=== PATIENT | female | born 1975 | race Caucasian/White ===

== ENCOUNTER → 2018-02-10 | Outpatient (CLI) | payer BC ==
--- NOTE | 2018-02-10 07:56 | US ---
EXAMINATION TYPE: US liver DATE OF EXAM: 02/10/2018 COMPARISON: NONE CLINICAL HISTORY: 42-year-old female R94.5 Elevated Liver Function; on medication: Motrin and Zoloft; gallbladder removed. TECHNIQUE: Multiple sonographic images of the right upper quadrant are obtained. FINDINGS: EXAM MEASUREMENTS: Liver Length: 18.1 cm Gallbladder: surgically absent CBD: 0.5 cm Right Kidney: 10.7 x 6.7 x 3.8 cm Pancreas: wnl Liver: left lobe liver cyst noted inferiorly = 1.0 x 0.9 x 1.2cm; fatty as is hyperechoic to right r enal cortex Gallbladder: surgically absent Evidence for sonographic Cade's sign: no CBD: wnl Right Kidney: wnl IMPRESSION: 1. Mild hepatomegaly (18.1 cm) with at least mild hepatic steatosis. Correlate with LFTs, lipid profi le, and patient risk factors. 2. Incidental benign 1.2 cm cyst left liver lobe. 3. Status post cholecystectomy.
== END | disposition home or self-care (01) ==
LOC: RADUSWWP 07:09
PROVIDERS: ATTEND Family Medicine
DX: K76.0 Fatty (change of) liver, not elsewhere classified (principal); R16.0 Hepatomegaly, not elsewhere classified; K76.89 Other specified diseases of liver; Z90.49 Acquired absence of other specified parts of digestive tract
CPT/HCPCS: 76705

== ENCOUNTER → 2018-03-19 | Outpatient (CLI) | payer BC ==
[2018-03-19 17:20] LABS: ALT 45 U/L (9-52); AST 31 U/L (14-36); Albumin 4.2 g/dL (3.5-5.0); Alkaline Phosphatase 43 U/L (38-126); Anion Gap 8 mmol/L; Blood Urea Nitrogen 23 mg/dL (7-17); Calcium 10.1 mg/dL (8.4-10.2); Carbon Dioxide 25 mmol/L (22-30); Chloride 105 mmol/L (98-107); Glucose 88 mg/dL (74-99); Potassium 4.1 mmol/L (3.5-5.1); Sodium 138 mmol/L (137-145); Total Bilirubin 0.5 mg/dL (0.2-1.3); Total Protein 6.7 g/dL (6.3-8.2)
== END | disposition home or self-care (01) ==
LOC: LABWHC1 16:07
PROVIDERS: ATTEND Internal Medicine Gastroenterology
DX: R94.5 Abnormal results of liver function studies (principal)
CPT/HCPCS: 36415; 80053

== ENCOUNTER → 2019-03-17 | Outpatient (CLI) | payer BC ==
--- NOTE | 2019-03-18 08:33 | XR ---
EXAMINATION TYPE: XR chest 2V DATE OF EXAM: 03/17/2019 COMPARISON: NONE HISTORY: Chest pain TECHNIQUE: Frontal and lateral views of the chest are obtained. FINDINGS: There is no focal air space opacity. No evidence for pneumothorax. No pleural effusion. The cardiac silhouette size is within normal limits. The osseous structures are grossly intact. IMPRESSION: 1. No acute cardiopulmonary process.
--- NOTE | 2019-03-18 08:33 | XR ---
EXAMINATION TYPE: XR sinus DATE OF EXAM: 03/17/2019 CLINICAL HISTORY: pain Four views of the paranasal sinuses are submitted. Paranasal sinuses demonstrate normal aeration and development. No air-fluid levels are seen. Mild mucosal thickening of the maxillary sinuses left gr eater than right. Nasal septum is midline. No evidence for bony destructive process. IMPRESSION: Mild chronic maxillary sinusitis.
== END | disposition home or self-care (01) ==
LOC: RADXRMAIN 16:49
PROVIDERS: ATTEND Family Medicine
DX: J32.0 Chronic maxillary sinusitis (principal); R05 Cough
CPT/HCPCS: 70220; 71046

== ENCOUNTER → 2019-07-02 | Outpatient (CLI) | payer BC ==
--- NOTE | 2019-07-02 21:05 | CT ---
EXAMINATION TYPE: CT sinus wo con DATE OF EXAM: 07/02/2019 COMPARISON: NONE HISTORY: Chronic sinusitis x6 months, issues more w/ RT side facial pain and headaches. CT DLP: 482 mGycm. Automated Exposure Control for Dose Reduction was Utilized. TECHNIQUE: CT scan of the sinuses is performed without contrast, axial images are obtained, coronal r eformatted images are also reviewed. FINDINGS: The paranasal sinuses including the frontal, ethmoid, sphenoid, and maxillary sinuses bila terally are well-aerated without abnormal opacification. The ostiomeatal complex is patent bilateral ly on coronal image 23. Nasal septum slightly deviated to the left of midline. Visualized portion of mastoid air cells show no abnormal opacification. The globes are intact bilate rally. Visualized brain parenchyma is within normal limits. IMPRESSION: The sinuses are clear and the ostiomeatal complex is patent bilaterally.
== END | disposition home or self-care (01) ==
LOC: RADCTMAIN 16:53
PROVIDERS: ATTEND Otolaryngology
DX: J32.9 Chronic sinusitis, unspecified (principal)
CPT/HCPCS: 70486

== ENCOUNTER 2019-10-02 08:53 | Day surgery (SDC) | payer BC ==
[2019-09-30 16:13] VITALS: BMI 33.4
--- NOTE | 2019-10-02 05:35 | HP ---
HISTORY AND PHYSICAL CHIEF COMPLAINT: Chronic laryngitis. HISTORY OF PRESENT ILLNESS: This patient is a 44-year-old female who was recently seen in my office complaining of having chronic hoarseness. The patient quit smoking approximately 12 years ago. At the time that she was seen in the office clinical examination including indirect laryngoscopy and a videostroboscopy revealed evidence of bilateral true vocal cord lesions. Because of the patient's history of previously heavy smoking, it was recommended that she undergo a suspension microlaryngoscopy with biopsy of the lesions of the vocal cords and possible laser of the vocal cords under general anesthesia. It was discussed with the patient that lesions of both vocal cords will be biopsied at this time. If the lesions are small enough then both true vocal cords will be lasered. However, if the lesions are fairly large, then only one vocal cord will be addressed with the laser at this time. PAST MEDICAL HISTORY: Past medical history reveals that the patient has no known allergies. MEDICATIONS: Her current her current medications include: 1. Zoloft. 2. Claritin. 3. Protonix. REVIEW OF SYSTEMS: Review of systems is positive with respect the gastrointestinal system because the patient is known to have GERD. The remainder of review of systems is unremarkable. PREVIOUS SURGERIES: Previous surgeries include a cholecystectomy, a total hysterectomy. The patient is 2 para, 2 and 0 miscarriages. PHYSICAL EXAMINATION: This patient is a pleasant 44-year-old female who is alert and cooperative. HEENT EXAMINATION: Patient is normocephalic. Tympanic membranes are normal. Middle ear spaces are free of any fluid or infection. Extraocular movements are within normal limits. Intranasal examination reveals moderate to severe septal deviation with compensatory hypertrophy of the inferior turbinates. Examination of the oropharynx including indirect laryngoscopy revealed bilateral true vocal cord lesions. The remainder of the head and neck exam is essentially unremarkable. CHEST/CARDIOVASCULAR: Both lung haile are clear to percussion and auscultation. The patient is in regular sinus rhythm. S1, S2 are present without evidence of any murmurs, S3s or S4s. Peripheral pulses are bilaterally symmetrical and within normal limits. ABDOMEN: There is no evidence any masses, megaly, or tenderness. The abdomen is soft. Skin is unremarkable. Musculoskeletal and neurological and the remainder of physical exam is unremarkable. IMPRESSION: Bilateral true vocal cord lesions. PLAN: The patient is scheduled to undergo biopsy of bilateral true vocal cord lesions with possible laser of true vocal cord lesions under general anesthesia in a.. ATTENTION RNS IN THE PRE-SURGICAL AREA: I have not ordered any pre-surgical prophylactic antibiotics for this patient. If the pharmacy department sends any pre- surgical prophylactic antibiotics to the pre-surgical area for this patient, that order should be cancelled and the medication should be returned to the pharmacy department. Please make sure that the patient's account is credited appropriately. I have discussed the risks, benefits and alternative therapies for the above-mentioned procedure and for both sedation/analgesia as well as necessary blood product administration, if indicated, as they pertain to this patient. The patient has indicated his or her understanding and acceptance of the risks and procedures discussed. MMODL / IJN: [id number] /
[~2019-10-02 08:53] MED LIST: DEXAMETHASONE SOD PHOSPHATE 10 MG/ML 1 ML VIAL IV ONE; HYDROmorphone 0.5 MG/0.5 ML SYRINGE IVP PRN; LACTATED RINGERS 1,000 ML IV SCH; LIDOCAINE 1% (10MG/ML) FOR IV START INTRADERMA PRN; MIDAZOLAM 2 MG/2 ML VIAL IV PRN; ONDANSETRON 4 MG/2 ML VIAL IVP ONE; Pre Op ABX Message 1 EACH MISC MISCELLANE ONE; fentaNYL (PF) 50 MCG/ML 2 ML AMP IVP PRN
[2019-10-02 09:16] VITALS: RESP 16
[2019-10-02] MEDS ORDERED: DEXAMETHASONE SOD PHOS (MDV) 100 MG/10 ML VIAL ONE (09:55)
[2019-10-02] MEDS ORDERED: NEOSTIGMINE 1 MG/ML 10 ML VIAL ONE (09:55)
[2019-10-02] MEDS ORDERED: LIDOCAINE 1% INJ 10MG/ML (20 ML MDV) ONE (09:55)
[2019-10-02] MEDS ORDERED: PHENYLEPHRINE-0.9% NACL SYG 1 MG/10 ML SYRINGE ONE (09:55)
[2019-10-02] MEDS ORDERED: KETOROLAC 30 MG/ML 1 ML VIAL ONE (09:55)
[2019-10-02] MEDS ORDERED: fentaNYL (PF) 50 MCG/ML 2 ML AMP ONE (09:55)
[2019-10-02] MEDS ORDERED: PROPOFOL 10 MG/ML 20 ML VIAL IV ONE (09:55)
[2019-10-02] MEDS ORDERED: MIDAZOLAM 2 MG/2 ML VIAL ONE (09:55)
[2019-10-02] MEDS ORDERED: ROCURONIUM BROMIDE 10 MG/ML 5 ML VIAL IV ONE (09:55)
[2019-10-02] MEDS ORDERED: GLYCOPYRROLATE 0.2 MG/ML 2 ML VIAL ONE (09:55)
[2019-10-02] MEDS ORDERED: SUCCINYLCHOLINE CHLORIDE 100 MG/5 ML SYR IV ONE (09:55)
[2019-10-02] MEDS ORDERED: LACTATED RINGERS 1,000 ML IV ONE (10:43)
[2019-10-02 11:38] VITALS: TEMP 97.5
[2019-10-02 12:46] VITALS: BP 122/74; PULSE 73
--- NOTE | 2019-10-05 05:45 | OP ---
OPERATIVE REPORT PREOPERATIVE DIAGNOSIS: Bilateral true vocal cord lesions. POSTOPERATIVE DIAGNOSIS: Bilateral true vocal cord lesions, pathology pending. ANESTHESIA: General. PROCEDURE: Suspension microlaryngoscopy with biopsy of the right and left true vocal cords and CO2 laser of the left true vocal cord. SURGEON: Dr. Mccullough. COMPLICATIONS: None. ESTIMATED BLOOD LOSS: Zero. OPERATIVE PROCEDURE: The patient was placed on operating table in supine position. After uneventful induction and endotracheal intubation, satisfactory general anesthesia was obtained. Next, the patient was draped in usual and customary fashion. Following this, the laryngoscope was introduced into the oropharynx and the entire hypopharynx including the right and left piriform sinuses, base of tongue, vallecula, and epiglottis were inspected and found to be free of any suspicious lesions. Next, the tip of the laryngoscope was placed at the laryngeal introitus. It is to be noted that because of this patient's anatomy, it was quite difficult getting an adequate view of the laryngeal introitus even with a very small laryngoscope. Next the Lewy apparatus was attached to the handle of the laryngoscope and the laryngoscope was suspended on the patient's chest. Next using the Zeiss operating microscope, inspection revealed that the patient had a large polypoid-like lesion on the left true vocal cord and a similar lesion on the right true vocal cord. It was decided to biopsy both lesions and therefore using a pair of microlaryngeal up-biting forceps, biopsies were initially taken of the left and right true vocal cord with the specimens being sent to pathology in formalin. Next, using the CO2 laser wand, the lesion on the left true vocal cord was vaporized in the usual fashion. The patient was given 10 mg of Decadron to reduce any postoperative laryngeal edema. At this point, the procedure was terminated. There were no intraoperative complications. The patient was returned to recovery room in satisfactory condition. Final pathology is pending. MMODL / IJN: [id number] /
== END 2019-10-02 13:53 | disposition home or self-care (01) ==
LOC: OR 08:53
PROVIDERS: ATTEND Otolaryngology
DX: J04.0 Acute laryngitis (principal); J37.0 Chronic laryngitis; J45.909 Unspecified asthma, uncomplicated; K21.9 Gastro-esophageal reflux disease without esophagitis; Z88.5 Allergy status to narcotic agent; Z90.49 Acquired absence of other specified parts of digestive tract; Z87.891 Personal history of nicotine dependence; Z79.1 Long term (current) use of non-steroidal anti-inflammatories (NSAID); Z79.899 Other long term (current) drug therapy; Z90.710 Acquired absence of both cervix and uterus
CPT/HCPCS: 88305; 88312; 31541; J2250; J1100 ×2; J2710; J2405; J2001; J3010; J1885; J2370; J0330; J2704

== ENCOUNTER 2020-07-15 08:44 | Day surgery (SDC) | payer BC ==
[2020-07-12 16:13] VITALS: BMI 33.4
--- NOTE | 2020-07-15 00:28 | HP ---
HISTORY AND PHYSICAL CHIEF COMPLAINT: Polypoid lesion of the right true vocal cord. HISTORY OF PRESENT ILLNESS: The patient is a very pleasant 45-year-old female who has previously undergone a bilateral biopsy of the true vocal cords, which was benign, in August of 2019. At the same time, the patient underwent laser vaporization of the left true vocal cord. We had originally planned on bringing the patient back approximately 6 to 8 weeks later. However, because of the COVID-19 situation, this had to be postponed. The patient was recently seen in my office and at that time clinical examination revealed her voice had improved, but she was still hoarse. Clinical examination including indirect laryngoscopy using a headlight and mirror revealed that she still had a polypoid lesion on the right true vocal cord. It was recommended that she undergo a suspension microlaryngoscopy with laser of polypoid lesion of the right true vocal cord under general anesthesia. PAST MEDICAL HISTORY: Past medical history reveals that she has no known allergies. Her current medications include Protonix, Zyrtec, and Ventolin. There is no history of diabetes mellitus, but she does have a history of asthma. PREVIOUS SURGERIES: Previous surgeries include suspension microlaryngoscopy with biopsy and laser of left true vocal cord, cholecystectomy, and total abdominal hysterectomy. The patient is 2 para, 2 , 0 miscarriage. REVIEW OF SYSTEMS: Review of systems is positive for the respiratory system for asthma. Gastrointestinal system is positive for GERD, gastroesophageal reflux disorder. The remainder of the review of systems is unremarkable. PHYSICAL EXAMINATION: This patient is a very pleasant 45-year-old female who is alert, cooperative and well oriented to time and place. HEENT EXAMINATION: Patient is normocephalic. Tympanic membranes are normal. Middle ear space is free of any fluid or infection. Pupils are equal, round, react to light and accommodation. Extraocular movements are within normal limits. Intranasal examination reveals moderate septal deviation with compensatory hypertrophy of the inferior turbinates and a moderate amount of clear mucus on the mucous membranes and draining down the posterior pharynx. Examination of the oropharynx including indirect laryngoscopy is as described in the history of present illness. The patient has a polypoid lesion on the right true vocal cord. Cranial nerves 2 through 12 and the remainder of the head and neck exam are within normal limits. CHEST/CARDIOVASCULAR: Both lung haile are clear to percussion and auscultation. The patient is in regular sinus rhythm. S1 and S2 are present without any murmurs, S3s or S4s. Peripheral pulses are bilaterally symmetrical. ABDOMEN: There is no evidence any masses megaly or tenderness. The abdomen is soft. Skin is unremarkable. Musculoskeletal and neurological are within normal limits. PELVIC/RECTAL EXAM: The pelvic rectal exam is deferred at this time because the patient has this done on a regular basis at her family physician's office. The remainder of the physical exam is essentially unremarkable. IMPRESSION: Right true vocal cord polyp. PLAN: The patient is scheduled to undergo a suspension microlaryngoscopy with laser vaporization of a right true vocal cord polyp under general anesthesia. ATTENTION RNS: I have not ordered any presurgical prophylactic antibiotics for this patient. If the pharmacy department sends any pre-surgical prophylactic antibiotics to the pre-surgical area for this patient, please cancel that order immediately, return the medication to the pharmacy department and make sure that the patient's account is credited appropriately. In addition, I have ordered for the patient to receive 1000 mg of Ofirmev IV to be given once an intravenous line has been established. I have discussed the risks, benefits and alternative therapies for the above-mentioned procedure and for both sedation/analgesia as well as necessary blood product administration, if indicated, as they pertain to this patient. The patient has indicated his or her understanding and acceptance of the risks and procedures discussed. MMODL / IJN: [id number] /
[~2020-07-15 08:44] MED LIST changes: -DEXAMETHASONE SOD PHOSPHATE 10 MG/ML 1 ML VIAL IV ONE; +DEXAMETHASONE SOD PHOSPHATE 4 MG/ML 1 ML VIAL IV ONE; -HYDROmorphone 0.5 MG/0.5 ML SYRINGE IVP PRN; -LIDOCAINE 1% (10MG/ML) FOR IV START INTRADERMA PRN; +SCOPOLAMINE 1.5MG/72HR PATCH TRANSDERM ONE; +fentaNYL (PF) 50 MCG/ML 2 ML AMP IV PRN; -fentaNYL (PF) 50 MCG/ML 2 ML AMP IVP PRN
[2020-07-15] MEDS ORDERED: ACETAMINOPHEN IV (For NPO) 1,000 MG in EMPTY BAG 1 BAG IVPB ONE (09:45)
[2020-07-15] MEDS ORDERED: DEXAMETHASONE SOD PHOSPHATE 10 MG/ML 1 ML VIAL ONE (10:13)
[2020-07-15] MEDS ORDERED: LIDOCAINE 1% INJ 10MG/ML (20 ML MDV) ONE (10:13)
[2020-07-15] MEDS ORDERED: SUCCINYLCHOLINE CHLORIDE VIAL 200 MG/10 ML VIAL IV ONE (10:13)
[2020-07-15] MEDS ORDERED: fentaNYL (PF) 50 MCG/ML 2 ML AMP ONE (10:13)
[2020-07-15] MEDS ORDERED: PROPOFOL 10 MG/ML 20 ML VIAL IV ONE (10:13)
[2020-07-15] MEDS ORDERED: ROCURONIUM 10 MG/ML (10 ML VIAL) IV ONE (10:13)
[2020-07-15] MEDS ORDERED: MIDAZOLAM 2 MG/2 ML VIAL ONE (10:13)
[2020-07-15] MEDS ORDERED: LACTATED RINGERS 1,000 ML IV ONE (11:21)
[2020-07-15 11:58] VITALS: TEMP 96.8
[2020-07-15 12:59] VITALS: BP 118/69; PULSE 85; RESP 20
[2020-07-15] MEDS ORDERED: IBUPROFEN 200 MG TAB PO ONE (13:07)
--- NOTE | 2020-07-15 23:47 | OP ---
OPERATIVE REPORT DATE OF SURGERY: 07/15/2020 PREOP DIAGNOSIS: Bilateral true vocal cord polyps. POSTOPERATIVE DIAGNOSIS: Bilateral true vocal cord polyps. ANESTHESIA: General. OPERATIVE PROCEDURE: Suspension microlaryngoscopy with bilateral CO2 laser vaporization of polyps of the right true vocal cord and limited CO2 laser vaporization of polyp of the left true vocal cord. OPERATING SURGEON: Dr. Kendall Mccullough. COMPLICATIONS: None. ESTIMATED BLOOD LOSS: Less than 1 mL. PROCEDURE DESCRIPTION: The patient is placed on the operating table in supine position. After uneventful induction endotracheal intubation, satisfactory general anesthesia was obtained. Next, the patient was draped in usual customary fashion. On the patient's previous suspension microlaryngoscopy, it was noted that she was somewhat of a difficult case to position the laryngoscope. Once again, she was a difficult case with this surgery. It was necessary to use several different sizes of laryngoscope to find which laryngoscope was most appropriate. An anterior commissure laryngoscope (narrow) was positioned at the laryngeal introitus and advanced thus exposing the larynx. Both true vocal cords appeared to be somewhat edematous. Using the velvet tipped suction to manipulate the right and left true vocal cord, it was noticed that a lot of the polypoid lesion was mainly inferiorly located on the right true vocal cord and a small part of the left true vocal cord. Therefore, with some difficulty, the laser wand was aimed at the polypoid lesion on the right true vocal cord and it was vaporized in the usual fashion. The small residual polyp on the left true vocal cord was also vaporized. The patient was given 10 mg of Decadron intraoperatively to reduce any postoperative laryngeal edema. The false vocal cords appeared to be unremarkable. No obvious subglottic lesion was noted. At this point, the procedure was terminated. There were no intraoperative complications. The procedure took approximately 1 hour and 15 minutes. Starting time was approximately 10:15 and ending time was approximately 11:30. Normal operating time for this procedure is less than 20 minutes. However, because of the difficulty with positioning the laryngoscope, this necessitated the extended operating time. The patient tolerated the procedure well and was returned to the recovery room in satisfactory condition. MMODL / IJN: [id number] /
== END 2020-07-15 13:46 | disposition home or self-care (01) ==
LOC: OR 08:44
PROVIDERS: ATTEND Otolaryngology
DX: J38.1 Polyp of vocal cord and larynx (principal); J45.909 Unspecified asthma, uncomplicated; K21.9 Gastro-esophageal reflux disease without esophagitis; Z87.891 Personal history of nicotine dependence; Z79.899 Other long term (current) drug therapy; Z88.5 Allergy status to narcotic agent; Z90.710 Acquired absence of both cervix and uterus; Z90.49 Acquired absence of other specified parts of digestive tract
CPT/HCPCS: 31541; J2250; J0330; J1100 ×2; J2405; J2001; J3010; J0131; J2704

== ENCOUNTER → 2021-07-17 | Outpatient (CLI) | payer BC ==
--- NOTE | 2021-07-17 18:40 | XR ---
EXAMINATION TYPE: XR chest 2V DATE OF EXAM: 07/17/2021 COMPARISON: 03/17/2019 HISTORY: Pneumonia TECHNIQUE: 2 views FINDINGS: Heart and mediastinum are normal. Lungs are clear. Diaphragm is normal. Bony thorax is inta ct. IMPRESSION: Normal chest. No change.
== END | disposition home or self-care (01) ==
LOC: RADXRMAIN 17:32
PROVIDERS: ATTEND Family Medicine
DX: J18.9 Pneumonia, unspecified organism (principal)
CPT/HCPCS: 71046

== ENCOUNTER → 2021-09-16 | Outpatient (CLI) | payer BC ==
--- NOTE | 2021-09-16 21:48 | CT ---
EXAMINATION TYPE: CT chest w con DATE OF EXAM: 09/16/2021 COMPARISON: No prior CT chest. HISTORY: Dyspnea CT DLP: 488.60 mGycm Automated exposure control for dose reduction was used. TECHNIQUE: CT scan of the chest is performed with IV Contrast, patient injected with 100 ml mL of Isovue 300. M IP Images are created on CT scanner and reviewed. 3D reconstructed images are created on an [employer] workstation and reviewed. FINDINGS: Lungs: No lung mass or significant lung nodule. Groundglass like opacities are seen in the medial as pect of the right lower lobe. Right lung base minimal subsegmental atelectasis seen. No significant a telectasis seen in the left lung base. Airways: Patent without endobronchial lesion or bronchiectasis. Pleural spaces: No effusion or pneumothorax. Lymph nodes: No enlarged axillary, mediastinal or hilar lymph nodes. Cardiac structures: Normal heart size. No pericardial effusion. Vascular structures: 3 vessel branching of the aortic arch. Nonaneurysmal intrathoracic aorta and upp er abdominal aorta. Normal main pulmonary trunk diameter (2.8 cm). Osseous structures: No acute osseous abnormality. No bony spinal canal stenosis. No compression fract ure deformity. Mild right AC joint OA. Bony spurring in the thoracic spine. Other findings: Thyroid gland prominent in size. Questionable nodule in the left thyroid lobe measuri ng about 0.8 cm versus artifact. Cholecystectomy clips. Accessory splenule. Esophagus is nondistended Soft tissue: Unremarkable. IMPRESSION: NONSPECIFIC FINDINGS OF RIGHT LOWER LOBE MINIMAL GROUNDGLASS OPACITIES ADJACENT MINIMAL SUBSEGMENTAL ATELECTASIS. THE DIFFERENTIAL DIAGNOSIS FOR THE GROUNDGLASS OPACITIES INCLUDES ADDITIONAL ATELECTASIS , INFECTION OR INFLAMMATION, AMONGST OTHERS.
== END | disposition home or self-care (01) ==
LOC: RADCTMAIN 09-02 08:27
PROVIDERS: ATTEND Internal Medicine Critical Care Medicine
DX: R91.8 Other nonspecific abnormal finding of lung field (principal); J98.11 Atelectasis
CPT/HCPCS: 85008; 86003; 82785; 71260; Q9967

== ENCOUNTER → 2022-05-15 | Outpatient (CLI) | payer BC ==
--- NOTE | 2022-05-15 16:29 | XR ---
Right knee HISTORY: Pain 5 views the right knee, no comparisons Bone mineralization and alignment are maintained. No fracture or dislocation. There is spurring at th e patellofemoral joint with some joint space loss. No sizable joint effusion is identified. IMPRESSION: Correlate for chondromalacia patella, osteoarthritis, knee MRI may be of benefit.
== END | disposition home or self-care (01) ==
LOC: RADXRMAIN 16:11
PROVIDERS: ATTEND Family Medicine
DX: Z74.09 Other reduced mobility (principal); M17.11 Unilateral primary osteoarthritis, right knee

== ENCOUNTER → 2022-10-16 | Outpatient (CLI) | payer BC ==
--- NOTE | 2022-10-17 08:21 | XR ---
EXAMINATION TYPE: XR sinus DATE OF EXAM: 10/16/2022 CLINICAL HISTORY: Facial pain , headache. TECHNIQUE: Christine, Graham, and lateral image of the skull are obtained. COMPARISON: Sinus x-ray March 17, 2019. Sinus CT July 02, 2019. FINDINGS: The paranasal sinuses including the frontal and maxillary sinuses appear well aerated witho ut distinct abnormal opacification or air-fluid level. Orbital floors and jc are intact. Facial bones appear intact. Nasal septum remains deviated to left of midline. IMPRESSION: No convincing radiographic evidence for acute paranasal sinusitis. No significant change from prior studies.
== END | disposition home or self-care (01) ==
LOC: RADXRMAIN 16:04
PROVIDERS: ATTEND Family Medicine
DX: J32.9 Chronic sinusitis, unspecified (principal); R51.9 Headache, unspecified
CPT/HCPCS: 70220

== ENCOUNTER → 2022-10-29 | Outpatient (CLI) | payer BC ==
[2022-10-30 05:20] LABS: Basophils # (A) 0.04 X 10*3/uL (0.00-0.10); Basophils % (A) 0.5 %; Eosinophils # (A) 0.38 X 10*3/uL (0.04-0.35); Eosinophils % (A) 4.4 %; HCT 38.3 % (37.2-46.3); HGB 12.7 g/dL (12.0-15.0); Immature Grans, Automated 0.3 %; Lymphocytes # (A) 2.93 X 10*3/uL (0.90-5.00); Lymphocytes % (A) 34.1 %; MCH 31.8 pg (27.0-32.0); MCHC 33.2 g/dL (32.0-37.0); Mean Platelet Volume 11.8 fL (9.5-12.2); Monocytes # (A) 0.52 X 10*3/uL (0.20-1.00); NRBC Per 100 WBC 0 /100 WBCS (0.0-0.0); Neutrophils % (A) 54.7 %; Platelet Count 260 X 10*3/uL (140-440); RBC 3.99 X 10*6/uL (4.10-5.20); RDW 12.8 % (11.5-14.5)
[2022-10-30 06:04] LABS: African American GFR (CKD) 122.2 (60.0-200.0); Anion Gap 9.4 mmol/L (10.00-18.00); BUN/Creat Ratio 32.16 Ratio (12.00-20.00); Blood Urea Nitrogen 21.1 mg/dL (9.0-27.0); Calcium 9.3 mg/dL (8.7-10.3); Carbon Dioxide 24.4 mmol/L (20.0-27.5); Non-African American GFR(CKD) 105.4 (60.0-200.0)
[2022-10-30 06:12] LABS: Appearance,Urine Turbid (Clear); Bilirubin,Urine Negative (Negative); Blood,Urine Negative (Negative); Color,Urine Yellow (Yellow); Ketones,Urine Negative (Negative); Nitrite,Urine Negative (Negative); Specific Gravity,Urine >1.035 (1.001-1.030)
[2022-10-30 07:50] LABS: Bacteria,Urine None Seen /HPF (None Seen); Calcium Oxalate Crystals,Urine Present /LPF (None Seen)
== END | disposition home or self-care (01) ==
LOC: LABPAT 13:47
PROVIDERS: ATTEND Urology
DX: Z01.812 Encounter for preprocedural laboratory examination (principal); N39.3 Stress incontinence (female) (male); R31.29 Other microscopic hematuria
CPT/HCPCS: 36415; 80048; 81001; 85025; 87086

== ENCOUNTER 2022-11-07 10:28 | Day surgery (SDC) | payer BC ==
--- NOTE | 2022-11-06 20:30 | P.GSHP ---
History of Present Illness H&P Date: 11/06/22 47 yo female with documented stress urinary incontinence gd 2, 3ppd. SHe leaks historically as well as she has a hypermobile urethra. SHe has a positive tiffany test.. She comes for a PVS, lynx graft. the risks and complications including infection, pain, erosion, dyspareunia, mesh controvery, retention, failure among others have been explained understood and accepted. - Constitutional Constitutional: Denies chills, Denies fever - EENT Eyes: denies blurred vision, denies pain Ears, nose, mouth and throat: Denies headache, Denies sore throat - Cardiovascular Cardiovascular: Denies chest pain, Denies shortness of breath - Respiratory Respiratory: Denies cough, Denies 7 - Gastrointestinal Gastrointestinal: Denies abdominal pain, Denies diarrhea, Denies nausea, Denies vomiting - Genitourinary (Female) Genitourinary: Denies dysuria, Denies hematuria - Genitourinary (Male) Genitourinary: Denies dysuria, Denies hematuria - Musculoskeletal Musculoskeletal: Denies myalgias - Integumentary Integumentary: Denies pruritus, Denies rash - Neurological Neurological: Denies numbness, Denies weakness - Psychiatric Psychiatric: Denies anxiety, Denies depression - Endocrine Endocrine: Denies fatigue, Denies weight change Past Medical History Past Medical History: Asthma, GERD/Reflux Additional Past Medical History / Comment(s): urine leakage, recent u/s of bladder and kidneys, arthritis to back, knees and legs. sinus infection History of Any Multi-Drug Resistant Organisms: None Reported Past Surgical History: Cholecystectomy, Hysterectomy Additional Past Surgical History / Comment(s): Left and right vocal cord polyp removed. Past Anesthesia/Blood Transfusion Reactions: Motion Sickness Smoking Status: Former smoker - Past Family History Mother Family Medical History: No Reported History Medications and Allergies Home Medications Medication Instructions Recorded Confirmed Type Acetaminophen [Tylenol] 1,000 mg PO Q4-6H PRN 09/30/19 11/01/22 History Albuterol Sulfate [Ventolin HFA] 1 - 2 puff INHALATION Q6H PRN 09/30/19 11/01/22 History Ibuprofen [Motrin] 800 mg PO Q8H 09/30/19 11/01/22 History Pantoprazole Sodium [Protonix] 40 mg PO QAM 09/30/19 11/01/22 History Sertraline [Zoloft] 100 mg PO QAM 09/30/19 11/01/22 History Multivitamins, Thera [Multivitamin 1 tab PO DAILY 07/12/20 11/01/22 History (formulary)] Allergies Allergy/AdvReac Type Severity Reaction Status Date / Time codeine Allergy Nausea & Verified 11/01/22 15:44 Vomiting Surgical - Exam - General well developed, well nourished, no distress - Eyes normal ocular movement, no icteric - ENT no hearing loss, no congestion - Neck no masses, trachea midline - Respiratory normal respiratory effort, clear to auscultation - Abdomen Abdomen: soft, non tender, no guarding, no rigid, no rebound - Genitourinary hypermobile urethra with incontinence and a positive tiffany test. - Integumentary no rash, no abnormal pigmentation - Neurologic no disoriented, no combative - Psychiatric oriented to time, oriented to person, oriented to place, speech is normal, memory intact Assessment and Plan Assessment: Impression: ROBERTO, asthma, reflux Plan: PVS[lynx graft], cysto
[~2022-11-07 10:28] MED LIST changes: +AMPICILLIN 1,000 MG in SODIUM CHLORIDE 0.9% 50 ML IVPB PRN; +GENTAMICIN 120 MG in SODIUM CHLORIDE 0.9% 100 ML IVPB PRN; +HYDROmorphone 0.5 MG/0.5 ML SYRINGE IVP PRN; +LIDOCAINE 1% (10MG/ML) FOR IV START INTRADERMA PRN; -Pre Op ABX Message 1 EACH MISC MISCELLANE ONE; -SCOPOLAMINE 1.5MG/72HR PATCH TRANSDERM ONE; -fentaNYL (PF) 50 MCG/ML 2 ML AMP IV PRN
[2022-11-07 11:05] VITALS: BP 132/73; PULSE 95; RESP 16; TEMP 96.8
== END 2022-11-07 11:29 | disposition home or self-care (01) ==
LOC: OR 10:28
PROVIDERS: ATTEND Urology
DX: Z53.09 Procedure and treatment not carried out because of other contraindication (principal); N39.3 Stress incontinence (female) (male); J45.909 Unspecified asthma, uncomplicated; K21.9 Gastro-esophageal reflux disease without esophagitis; Z90.49 Acquired absence of other specified parts of digestive tract; Z90.710 Acquired absence of both cervix and uterus; Z87.891 Personal history of nicotine dependence; T75.3XXA Motion sickness, initial encounter

== ENCOUNTER 2022-11-12 08:02 | Inpatient (IN) | payer BC ==
--- NOTE | 2022-11-12 08:51 | ED ---
Skin/Abscess/FB HPI - General Chief complaint: Skin/Abscess/Foreign Body Stated complaint: abd wound Time Seen by Provider: 11/12/22 08:15 Source: patient, RN notes reviewed Mode of arrival: ambulatory Limitations: no limitations - History of Present Illness Initial comments: 47-year-old female presents emergency Department with chief complaint of right- sided abdominal abscesses. Patient states she's had she had this is her abdomen for last week. Patient states her steadily getting worse. Patient states that she's been on Bactrim for 4 days. Patient states the redness is no old in size increasing pain subjective fevers and chills. Patient did see her PCP who oscar recent laboratory studies, attempted to obtain wound culture. Patient denies b eing diabetic no history of skin infections. - Related Data Home Medications Medication Instructions Recorded Confirmed Ibuprofen [Motrin] 800 mg PO Q8H PRN 09/30/19 11/12/22 Pantoprazole Sodium [Protonix] 40 mg PO QAM 09/30/19 11/12/22 Albuterol Sulfate [Albuterol 2 puff PO RT-QID PRN 11/12/22 11/12/22 Sulfate Hfa] Cyclobenzaprine [Flexeril] 10 mg PO TID PRN 11/12/22 11/12/22 Montelukast [Singulair] 10 mg PO DAILY 11/12/22 11/12/22 Mupirocin Calcium 2% Cream 1 applic TOPICAL BID 11/12/22 11/12/22 [Bactroban 2% Cream] Pantoprazole Sodium [Protonix] 40 mg PO DAILY 11/12/22 11/12/22 Sertraline [Zoloft] 100 mg PO DAILY 11/12/22 11/12/22 Sulfamethox-Tmp 800-160Mg [Bactrim 1 tab PO Q12HR 11/12/22 11/12/22 DS 800-160 mg] Allergies Allergy/AdvReac Type Severity Reaction Status Date / Time codeine AdvReac Dizzy, Verified 11/12/22 10:30 Nausea & Vomiting Review of Systems ROS Statement: Those systems with pertinent positive or pertinent negative responses have been documented in the HPI. ROS Other: All systems not noted in ROS Statement are negative. Past Medical History Past Medical History: Asthma, GERD/Reflux History of Any Multi-Drug Resistant Organisms: None Reported Past Surgical History: Cholecystectomy, Hysterectomy Additional Past Surgical History / Comment(s): Left vocal cord polyp removed. Past Anesthesia/Blood Transfusion Reactions: Motion Sickness Past Psychological History: Anxiety Smoking Status: Never smoker Past Alcohol Use History: None Reported Past Drug Use History: None Reported - Past Family History Mother Family Medical History: No Reported History General Exam Limitations: no limitations General appearance: alert, in no apparent distress Head exam: Present: atraumatic, normocephalic, normal inspection Neck exam: Present: normal inspection, full ROM. Absent: tenderness, meningismus, lymphadenopathy Respiratory exam: Present: normal lung sounds bilaterally. Absent: respiratory distress, wheezes, rales, rhonchi, stridor Cardiovascular Exam: Present: normal rhythm, tachycardia, normal heart sounds. Absent: systolic murmur, diastolic murmur, rubs, gallop, clicks GI/Abdominal exam: Present: soft, tenderness (Right-sided 2 large abscesses with opening and purulent drainage noted surrounding significant erythema), normal bowel sounds. Absent: distended, guarding, rebound, rigid Neurological exam: Present: alert Skin exam: Present: warm, dry, intact, normal color. Absent: rash Course Vital Signs 11/12/22 11/12/22 08:08 10:27 Temperature 98.4 F Pulse Rate 110 H 82 Respiratory 20 16 Rate Blood Pressure 132/82 126/82 O2 Sat by Pulse 99 95 Oximetry Medical Decision Making - Medical Decision Making Was pt. sent in by a medical professional or institution (, PA, CERTIFIED ORTHOPTIST, urgent care, hospital, or correction...) When possible be specific @ -No Did you speak to anyone other than the patient for history (EMS, parent, family, police, friend...)? What history was obtained from this source @ -No Did you review nursing and triage notes (agree or disagree)? Why? @ -I reviewed and agree with nursing and triage notes Were old charts reviewed (outside hosp., previous admission, EMS record, old EKG, old radiological studies, urgent care reports/EKG's, correction records)? Report findings @ -No old charts were reviewed Differential Diagnosis (chest pain, altered mental status, abdominal pain women, abdominal pain men, vaginal bleeding, weakness, fever, dyspnea, syncope, headache, dizziness, GI bleed, back pain, seizure, CVA, palpatations, mental health, musculoskeletal)? @ -nDifferential Abdominal Pain Women: Appendicitis, Cholecystitis, diverticulosis, ischemic bowel, pancreatitis, hepatitis, UTI, gastroenteritis, AAA, incarcerated hernia, bowel obstruction, constipation, inflammatory bowel, hepatitis, peptic ulcer disease, splenic infarction, perforated viscus, vulvitis, ovarian torsion, PID, kidney stone, home centa abruption, this is not meant to be an all-inclusive listable EKG interpreted by me (3pts min.). @ -None X-rays interpreted by me (1pt min.). @ -None done CT interpreted by me (1pt min.). @ -None done U/S interpreted by me (1pt. min.). @ -None done What testing was considered but not performed or refused? (CT, X-rays, U/S, labs)? Why? @ -None What meds were considered but not given or refused? Why? @ -None Did you discuss the management of the patient with other professionals (professionals i.e. , PA, CERTIFIED ORTHOPTIST, lab, RT, psych nurse, professor of social work, day trader, teacher, police commanding officer, case maker)? Give summary @ -[facility] hospitalists for admission for IV antibiotics, ID consult and further treatment Was smoking cessation discussed for >3mins.? @ -No Was critical care preformed (if so, how long)? @ -No Were there social determinants of health that impacted care today? How? (Homelessness, low income, unemployed, alcoholism, drug addiction, transportation, low edu. Level, literacy, decrease access to med. care, half-way, rehab)? @ -No Was there de-escalation of care discussed even if they declined (Discuss DNR or withdrawal of care, Hospice)? DNR status @ -No What co-morbidities impacted this encounter? (DM, HTN, Smoking, COPD, CAD, Cancer, CVA, ARF, Chemo, Hep., AIDS, mental health diagnosis, sleep apnea, morbid obesity)? @ -None Was patient admitted / discharged? Hospital course, mention meds given and route, prescriptions, significant lab abnormalities, going to OR and other pertinent info. @ -hospital course Undiagnosed new problem with uncertain prognosis? @ -No Drug Therapy requiring intensive monitoring for toxicity (Heparin, Nitro, Insulin, Cardizem)? @ -No Were any procedures done? @ -No Diagnosis/symptom? @ -Abdominal abscesses, failure of outpatient treatment Acute, or Chronic, or Acute on Chronic? @ -Acute Uncomplicated (without systemic symptoms) or Complicated (systemic symptoms)? @ -Complicated Side effects of treatment? @ -No Exacerbation, Progression, or Severe Exacerbation? @ -No Poses a threat to life or bodily function? How? (Chest pain, USA, [place], pneumonia, PE, COPD, DKA, ARF, appy, cholecystitis, CVA, Diverticulitis, Homicidal, Suicidal, threat to staff... and all critical care pts) @ -No - Lab Data Result diagrams: 11/12/22 08:35 11/12/22 08:35 Lab Results 11/12/22 11/12/22 11/12/22 Range/Units 08:35 08:35 08:35 WBC 8.1 (3.8-10.6) k/uL RBC 4.47 (3.80-5.40) m/uL Hgb 14.0 (11.4-16.0) gm/dL Hct 42.4 (34.0-46.0) % MCV 94.9 (80.0-100.0) fL MCH 31.3 (25.0-35.0) pg MCHC 33.0 (31.0-37.0) g/dL RDW 12.5 (11.5-15.5) % Plt Count 293 (150-450) k/uL MPV 7.2 Neutrophils % 65 % Lymphocytes % 26 % Monocytes % 4 % Eosinophils % 5 % Basophils % 0 % Neutrophils # 5.2 (1.3-7.7) k/uL Lymphocytes # 2.1 (1.0-4.8) k/uL Monocytes # 0.3 (0-1.0) k/uL Eosinophils # 0.4 (0-0.7) k/uL Basophils # 0.0 (0-0.2) k/uL Sodium 135 L (137-145) mmol/L Potassium 3.9 (3.5-5.1) mmol/L Chloride 101 (98-107) mmol/L Carbon Dioxide 24 (22-30) mmol/L Anion Gap 10 mmol/L BUN 18 H (7-17) mg/dL Creatinine 0.77 (0.52-1.04) mg/dL Est GFR (CKD-EPI)AfAm >90 (>60 ml/min/1.73 sqM) Est GFR (CKD-EPI)NonAf >90 (>60 ml/min/1.73 sqM) Glucose 124 H (74-99) mg/dL Plasma Lactic Acid Javier 2.2 H* (0.7-2.0) mmol/L Calcium 9.7 (8.4-10.2) mg/dL Total Bilirubin 0.4 (0.2-1.3) mg/dL AST 30 (14-36) U/L ALT 34 (4-34) U/L Alkaline Phosphatase 63 (38-126) U/L Total Protein 7.0 (6.3-8.2) g/dL Albumin 4.2 (3.5-5.0) g/dL Disposition Clinical Impression: Abdominal wall abscess, Failure of outpatient treatment Disposition: ADMITTED IP TO THIS HOSP Condition: Fair Referrals: Ru Latif DO [Primary Care Provider] - 1-2 days Time of Disposition: 10:29
[2022-11-12 08:52] LABS: Basophils % (A) 0 %; Eosinophils # (A) 0.4 k/uL (0-0.7); Eosinophils % (A) 5 %; HCT 42.4 % (34.0-46.0); Lymphocytes # (A) 2.1 k/uL (1.0-4.8); Lymphocytes % (A) 26 %; MCH 31.3 pg (25.0-35.0); MCV 94.9 fL (80.0-100.0); Mean Platelet Volume 7.2; Monocytes # (A) 0.3 k/uL (0-1.0); Monocytes % (A) 4 %; Neutrophils # (A) 5.2 k/uL (1.3-7.7); Neutrophils % (A) 65 %; Platelet Count 293 k/uL (150-450); RBC 4.47 m/uL (3.80-5.40); RDW 12.5 % (11.5-15.5); WBC 8.1 k/uL (3.8-10.6)
[2022-11-12 09:06] LABS: ALT 34 U/L (4-34); AST 30 U/L (14-36); African American GFR (CKD) >90 (>60 ml/min/1.73 sqM); Albumin 4.2 g/dL (3.5-5.0); Alkaline Phosphatase 63 U/L (38-126); Anion Gap 10 mmol/L; Blood Urea Nitrogen 18 mg/dL (7-17); Calcium 9.7 mg/dL (8.4-10.2); Carbon Dioxide 24 mmol/L (22-30); Chloride 101 mmol/L (98-107); Glucose 124 mg/dL (74-99); Non-African American GFR(CKD) >90 (>60 ml/min/1.73 sqM); Potassium 3.9 mmol/L (3.5-5.1); Sodium 135 mmol/L (137-145); Total Bilirubin 0.4 mg/dL (0.2-1.3)
--- NOTE | 2022-11-12 09:23 | CT ---
EXAMINATION TYPE: CT abdomen pelvis w con CT DLP: 1719.3 mGycm, Automated exposure control for dose reduction was used. DATE OF EXAM: 11/12/2022 9:07 AM COMPARISON: CT abdomen pelvis most recent from 09/16/2021 CLINICAL INDICATION:Female, 47 years old with history of pain, multiple abscesses; abd pain TECHNIQUE: Axial CT of the abdomen and pelvis. Sagittal and coronal reformats were created on a [employer] workstation. Contrast used:100 mL of Isovue 300 with IV Contrast, Oral contrast used: without Oral Contrast FINDINGS: LOWER CHEST: Unremarkable ABDOMEN LIVER: Hepatic cysts near the falciform ligament. GALLBLADDER AND BILE DUCTS: The gallbladder surgically absent. PANCREAS: Unremarkable. SPLEEN: Unremarkable. ADRENAL GLANDS: Unremarkable. KIDNEYS AND URETERS: No evidence of hydronephrosis or renal calculus. The ureters are unremarkable. PELVIS BLADDER: Unremarkable REPRODUCTIVE: The uterus is not visualized and may is likely surgically absent. ABDOMEN & PELVIS STOMACH AND BOWEL: No evidence of bowel obstruction. PERITONEUM/RETROPERITONEUM: No evidence of pneumoperitoneum or free fluid. VASCULATURE: Mild atherosclerotic calcifications are present throughout the abdominal aorta and its b ranches. No evidence of aortic aneurysm. MUSCULOSKELETAL: No acute osseous abnormalities. Mild disc degeneration changes are present throughou t the thoracolumbar spine. LYMPH NODES: No gross evidence for lymphadenopathy. SOFT TISSUE/ABDOMINAL WALL: Skin thickening in the right right subcutaneous abdominal wall inferiorly measuring up to 10 mm in thickness with mild fat stranding changes series 201 image 65. More superio rly Image 21 image 33 demonstrates skin thickening measuring up to 6 mm with deep fat stranding rubio es also present. No organizing fluid collection either of these sites. IMPRESSION: Right abdominal wall subcutaneous skin thickening without definitive organizing fluid collection to s uggest abscess. There are 2 discrete areas of skin thickening noted. The larger more superior has phl egmonous changes while the more inferior just a skin thickening with minimal fat stranding in the ayaz p tissues.
[2022-11-12] MEDS ORDERED: ONDANSETRON 4 MG/2 ML VIAL IVP PRN (10:50)
[2022-11-12] MEDS ORDERED: ACETAMINOPHEN TAB 325 MG TAB PO PRN (10:50)
[2022-11-12] MEDS ORDERED: NALOXONE 0.4 MG/ML 1 ML VIAL IV PRN (10:50)
[2022-11-12] MEDS ORDERED: IBUPROFEN 400 MG TAB PO PRN (10:50)
[2022-11-12] MEDS ORDERED: VANCOMYCIN IV PER PHARMACY 1 EACH MISC MISCELLANE PRN (10:51)
[2022-11-12] MEDS ORDERED: VANCOMYCIN 1,750 MG in SODIUM CHLORIDE 0.9% 500 ML 500 ML IVPB STA (10:56)
[2022-11-12] MEDS: HYDROcodone/APAP 5-325MG 1 EACH TAB PO PRN ×3 (11:15→21:26)
[2022-11-12] MEDS ORDERED: CYCLOBENZAPRINE 10 MG TAB PO PRN (13:26)
[2022-11-12] MEDS ORDERED: ALBUTEROL HFA INHALER INHALATION PRN (13:26)
--- NOTE | 2022-11-12 16:15 | P.HPIM ---
History of Present Illness 47-year-old female was admitted for right-sided abdominal wall abscess patient has 2 abscesses with significant induration CT of the abdomen did show fluid collection. General surgery was consulted. Wound cultures were obtained. P atient the was on Bactrim for these cellulitis and abscess in spite of Bactrim patient continued to get worse. Patient doesn't have any fever doesn't have any leukocytosis. Patient is presently on vancomycin denied any history of MRSA in the past. REVIEW OF SYSTEMS: CONSTITUTIONAL: No fever, no malaise, no fatigue. HEENT: No recent visual problems or hearing problems. Denied any sore throat. CARDIOVASCULAR: No chest pain, orthopnea, PND, no palpitations, no syncope. PULMONARY: No shortness of breath, no cough, no hemoptysis. GASTROINTESTINAL: No diarrhea, no nausea, no vomiting. NEUROLOGICAL: No headaches, no weakness, no numbness. HEMATOLOGICAL: Denies any bleeding or petechiae. GENITOURINARY: Denies any burning micturition, frequency, or urgency. MUSCULOSKELETAL/RHEUMATOLOGICAL: Denies any joint pain, swelling, or any muscle pain. ENDOCRINE: Denies any polyuria or polydipsia. The rest of the 14-point review of systems is negative. PHYSICAL EXAMINATION: GENERAL: The patient is alert and oriented x3, not in any acute distress. Well developed, well nourished. HEENT: Pupils are round and equally reacting to light. EOMI. No scleral icterus. No conjunctival pallor. Normocephalic, atraumatic. No pharyngeal erythema. No thyromegaly. CARDIOVASCULAR: S1 and S2 present. No murmurs, rubs, or gallops. PULMONARY: Chest is clear to auscultation, no wheezing or crackles. ABDOMEN: Soft, nontender, nondistended, normoactive bowel sounds. No palpable organomegaly. MUSCULOSKELETAL: No joint swelling or deformity. EXTREMITIES: No cyanosis, clubbing, or pedal edema. NEUROLOGICAL: Gross neurological examination did not reveal any focal deficits. SKIN: Patient has 2 abscesses on the right side of the abdomen with significant induration and purulent drainage and redness around the abscess. Assessment and plan -Abdominal wall abscess: Patient will be continued on vancomycin may need incision and drainage and surgery will be consulted wound cultures were obtai gian. -Gastroesophageal esophageal reflux disease -Asthma history without any acute exacerbation -Depression patient is on sertraline which will be continued DVT prophylaxis: Ambulation Past Medical History Past Medical History: Asthma, GERD/Reflux History of Any Multi-Drug Resistant Organisms: None Reported Past Surgical History: Cholecystectomy, Hysterectomy Additional Past Surgical History / Comment(s): Left vocal cord polyp removed. Past Anesthesia/Blood Transfusion Reactions: Motion Sickness Past Psychological History: Anxiety Smoking Status: Former smoker, Never smoker Past Alcohol Use History: None Reported Additional Past Alcohol Use History / Comment(s): STARTED SMOKING AT AGE 15, QUIT 07/24/07, SMOKED 1/2 PPD. Past Drug Use History: None Reported - Past Family History Mother Family Medical History: No Reported History Medications and Allergies Home Medications Medication Instructions Recorded Confirmed Type Ibuprofen [Motrin] 800 mg PO Q8H PRN 09/30/19 11/12/22 History Pantoprazole Sodium [Protonix] 40 mg PO QAM 09/30/19 11/12/22 History Albuterol Sulfate [Albuterol 2 puff PO RT-QID PRN 11/12/22 11/12/22 History Sulfate Hfa] Cyclobenzaprine [Flexeril] 10 mg PO TID PRN 11/12/22 11/12/22 History Montelukast [Singulair] 10 mg PO DAILY 11/12/22 11/12/22 History Mupirocin Calcium 2% Cream 1 applic TOPICAL BID 11/12/22 11/12/22 History [Bactroban 2% Cream] Pantoprazole Sodium [Protonix] 40 mg PO DAILY 11/12/22 11/12/22 History Sertraline [Zoloft] 100 mg PO DAILY 11/12/22 11/12/22 History Sulfamethox-Tmp 800-160Mg [Bactrim 1 tab PO Q12HR 11/12/22 11/12/22 History DS 800-160 mg] Allergies Allergy/AdvReac Type Severity Reaction Status Date / Time codeine AdvReac Dizzy, Verified 11/12/22 10:30 Nausea & Vomiting Physical Exam Vitals: Vital Signs Temp Pulse Pulse Pulse Resp BP BP 11/12/22 15:00 97.9 F 88 16 124/69 11/12/22 11:45 98.0 F 73 18 130/73 11/12/22 10:27 82 16 126/82 11/12/22 08:08 98.4 F 110 H 20 132/82 Pulse Ox 11/12/22 15:00 95 11/12/22 11:45 95 11/12/22 10:27 95 11/12/22 08:08 99 Intake and Output 11/12/22 11/12/22 11/12/22 06:59 14:59 22:59 Other: # Voids 3 Weight 104.326 kg Results CBC & Chem 7: 11/12/22 08:35 11/12/22 08:35 Labs: Abnormal Lab Results - Last 24 Hours (Table) 11/12/22 11/12/22 Range/Units 08:35 08:35 Sodium 135 L (137-145) mmol/L BUN 18 H (7-17) mg/dL Glucose 124 H (74-99) mg/dL Plasma Lactic Acid Javier 2.2 H* (0.7-2.0) mmol/L Thrombosis Risk Factor Assmnt - Choose All That Apply Each Factor Represents 1 point: Age 41-60 years Other Risk Factors: No Other congenital or acquired thrombophilia - If yes, enter type in comment: No Thrombosis Risk Factor Assessment Total Risk Factor Score: 1 Thrombosis Risk Factor Assessment Level: Low Risk
--- NOTE | 2022-11-12 19:31 | P.CONS ---
History of Present Illness - Reason for Consult Consult date: 11/12/22 Abdominal wall abscess Requesting physician: Alberto Cooper - Chief Complaint Abdominal wall swelling redness x few days - History of Present Illness Patient is a 47-year female with a past medical history of asthma reflux presenting to the ER for evaluation of right-sided abdominal wall pain and swelling symptom has been going on for about 2 weeks she did have 2 lesion 1 on the upper abdomen and 1 in the lower abdominal area that has been going on for almost 2 weeks patient has been evaluated outpatient setting by her primary care physician treated with oral Bactrim DS without any improvement patient mention may have started as small pimple that has decreased in size becoming more swollen red and painful patient describing the pain to be throbbing almost 10 out of 10 in severity without radiation and started having some drainage with the symptom the patient was evaluated on arrival to the ER patient was afebrile and no fever has been recorded subsequently patient did have a normal white count kidney function has been normal lactic acid elevated 2.2 patient did have a CT of abdominal pelvis right abdominal wall subcutaneous skin thickening without definite organizing fluid collection 2 discrete areas of skin thickening noted patient was started on vancomycin infectious disease was consulted for further management of antibiotic therapy I was able to obtain cultures from the upper abdominal abscess area which was draining purulent material Review of Systems Positive point and negatives has been mentioned in the HPI, complete review of systems was performed and all other systems are negative Past Medical History Past Medical History: Asthma, GERD/Reflux History of Any Multi-Drug Resistant Organisms: None Reported Past Surgical History: Cholecystectomy, Hysterectomy Additional Past Surgical History / Comment(s): Left vocal cord polyp removed. Past Anesthesia/Blood Transfusion Reactions: Motion Sickness Past Psychological History: Anxiety Smoking Status: Never smoker Past Alcohol Use History: None Reported Past Drug Use History: None Reported - Past Family History Mother Family Medical History: No Reported History Medications and Allergies Home Medications Medication Instructions Recorded Confirmed Type Ibuprofen [Motrin] 800 mg PO Q8H PRN 09/30/19 11/12/22 History Pantoprazole Sodium [Protonix] 40 mg PO QAM 09/30/19 11/12/22 History Albuterol Sulfate [Albuterol 2 puff PO RT-QID PRN 11/12/22 11/12/22 History Sulfate Hfa] Cyclobenzaprine [Flexeril] 10 mg PO TID PRN 11/12/22 11/12/22 History Montelukast [Singulair] 10 mg PO DAILY 11/12/22 11/12/22 History Mupirocin Calcium 2% Cream 1 applic TOPICAL BID 11/12/22 11/12/22 History [Bactroban 2% Cream] Pantoprazole Sodium [Protonix] 40 mg PO DAILY 11/12/22 11/12/22 History Sertraline [Zoloft] 100 mg PO DAILY 11/12/22 11/12/22 History Sulfamethox-Tmp 800-160Mg [Bactrim 1 tab PO Q12HR 11/12/22 11/12/22 History DS 800-160 mg] Allergies Allergy/AdvReac Type Severity Reaction Status Date / Time codeine AdvReac Dizzy, Verified 11/12/22 10:30 Nausea & Vomiting Physical Exam Vitals: Vital Signs Temp Pulse Pulse Resp BP BP Pulse Ox 11/12/22 11:45 98.0 F 73 18 130/73 95 11/12/22 10:27 82 16 126/82 95 11/12/22 08:08 98.4 F 110 H 20 132/82 99 Intake and Output 11/11/22 11/12/22 11/12/22 22:59 06:59 14:59 Other: Weight 104.326 kg GENERAL DESCRIPTION: Middle-aged female lying in bed, no distress. No tachypnea or accessory muscle of respiration use. HEENT: Shows Pallor , no scleral icterus. Oral mucous membrane is dry. NECK: Trachea central, no thyromegaly. LUNGS: Unlabored breathing. Clear to auscultation anteriorly. No wheeze or crackle. HEART: S1, S2, regular rate and rhythm. No loud murmur ABDOMEN: Soft, patient did have 2 areas of induration and swelling redness on the right side of the abdominal wall of the area did have small opening which was cultured and purulent drainage EXTREMITIES: No edema of feet. SKIN: No rash, no masses palpable. NEUROLOGICAL: The patient is awake, alert, oriented x3, mood and affect normal. Results CBC & Chem 7: 11/12/22 08:35 11/15/22 05:42 Labs: Abnormal Lab Results - Last 24 Hours (Table) 11/12/22 11/12/22 Range/Units 08:35 08:35 Sodium 135 L (137-145) mmol/L BUN 18 H (7-17) mg/dL Glucose 124 H (74-99) mg/dL Plasma Lactic Acid Javier 2.2 H* (0.7-2.0) mmol/L Assessment and Plan (1) Abdominal wall abscess Current Visit: Yes Status: Acute Code(s): L02.211 - CUTANEOUS ABSCESS OF ABDOMINAL WALL SNOMED Code(s): 10800228 (2) Failure of outpatient treatment Current Visit: Yes Status: Acute Code(s): Z78.9 - OTHER SPECIFIED HEALTH STATUS SNOMED Code(s): 674272257 Plan: 1patient to the hospital abdominal wall abscess x2 the upper area seems to be larger and draining purulent material which has been cultured likely from gram- positive skin claire and high clinical suspicious for community associated MRSA 2-local culture has been repeated to guide further antibiotic therapy 3-patient benefit from surgical drainage especially upper abdominal abscess 4-vancomycin pharmacy to dose with a target trough of 15 while watching kidney function and Vanco trough closely. We will follow on clinical condition and cultures to further adjust medication if needed Thank you for this consultation we will follow the patient along with you Time with Patient: Greater than 30
[2022-11-12] MEDS: MUPIROCIN 2% OINT 22 GM TUBE TOPICAL SCH (21:26)
[2022-11-12] MEDS: VANCOMYCIN 1,750 MG in SODIUM CHLORIDE 0.9% 500 ML 500 ML IVPB SCH (23:15)
[2022-11-13 07:04] LABS: African American GFR (CKD) >90 (>60 ml/min/1.73 sqM); Non-African American GFR(CKD) >90 (>60 ml/min/1.73 sqM)
[2022-11-13] MEDS: SERTRALINE 100 MG TAB PO SCH (09:46)
[2022-11-13] MEDS: MONTELUKAST 10 MG TAB PO SCH (09:46)
[2022-11-13] MEDS: PANTOPRAZOLE 40 MG TABLET PO SCH (09:47)
[2022-11-13] MEDS: IBUPROFEN 800 MG TAB PO PRN ×2 (11:50→21:24)
[2022-11-13] MEDS: VANCOMYCIN 1,750 MG in SODIUM CHLORIDE 0.9% 500 ML 500 ML IVPB SCH ×2 (11:51→22:31)
[2022-11-13] MEDS: MUPIROCIN 2% OINT 22 GM TUBE TOPICAL SCH ×2 (13:21→21:24)
--- NOTE | 2022-11-13 14:47 | P.GSCN ---
History of Present Illness Consult date: 11/13/22 History of present illness: CHIEF COMPLAINT: 2 right-sided abdominal abscesses HISTORY OF PRESENT ILLNESS: This is a 47-year-old female who presented to the ER with complaints of 2 right-sided abdominal abscesses. She had been on Bactrim in the outpatient setting with no improvement. The abscesses are located on the lateral aspect of the right side of the abdomen. Both abscesses are draining. They have been tender with palpation. She denies any history of MRSA denies any history of diabetes. She's never had any abscesses before. She is followed by infectious disease. And is on antibiotics. Patient seen and examined with Dr. horan PAST MEDICAL HISTORY: See below PAST SURGICAL HISTORY: See below MEDICATIONS: See below ALLERGIES: See below SOCIAL HISTORY: No illicit drug use. REVIEW OF SYSTEMS: CONSTITUTIONAL: Denies fever or chills. HEENT: Denies blurred vision, vision changes, or eye pain. Denies hemoptysis CARDIOVASCULAR: Denies chest pain or pressure. RESPIRATORY: No shortness of breath. GASTROINTESTINAL: See HPI for pertinent findings HEMATOLOGIC: Denies bleeding disorders. GENITOURINARY: Denies any blood in urine or increased urinary frequency. SKIN: Denies pruitis. Denies rash. PHYSICAL EXAM: VITAL SIGNS: Reviewed GENERAL: Well-developed in no acute distress. ABDOMEN: Soft. Nondistended. 2 lateral right abdominal abcesses. Both abscesses are draining purulent drainage. The more proximal abscesses does have area of induration about 2 cm in size. Tender with palpation. Erythema noted. The more distal abscesses is softer with mild erythema and less drainage. NEUROLOGIC: Alert and oriented. Cranial nerves II through XII grossly intact. LABORATORY DATA: WBC 8.1 hgb 14 platelets 293 Lactic acid 2.2 down to 0.8 IMAGING: Computed tomography scan abdomen and pelvis right abdominal wall subcutaneous skin thickening without definitive organizing fluid collection to suggest abscess. There are 2 discrete areas of skin thickening noted. The larger more superior has phlegmonous changes with the more inferior just a skin thickening with minimal fat stranding and deep tissues ASSESSMENT: 1. 2 right-sided abdominal abscesses that are draining PLAN: -No surgical intervention planned -Continue antibiotics per infectious disease -Continue conservative management -Encouraged patient to apply warm compresses -Encouraged patient to shower frequently Thank you for this consultation Physician Boss Dyer note has been reviewed by physician. Signing provider agrees with the documented findings, assessment, and plan of care. Past Medical History Past Medical History: Asthma, GERD/Reflux History of Any Multi-Drug Resistant Organisms: None Reported Past Surgical History: Cholecystectomy, Hysterectomy Additional Past Surgical History / Comment(s): Left vocal cord polyp removed. Past Anesthesia/Blood Transfusion Reactions: Motion Sickness Past Psychological History: Anxiety Smoking Status: Never smoker Past Alcohol Use History: None Reported Past Drug Use History: None Reported - Past Family History Mother Family Medical History: No Reported History Medications and Allergies Home Medications Medication Instructions Recorded Confirmed Type Ibuprofen [Motrin] 800 mg PO Q8H PRN 09/30/19 11/12/22 History Pantoprazole Sodium [Protonix] 40 mg PO QAM 09/30/19 11/12/22 History Albuterol Sulfate [Albuterol 2 puff PO RT-QID PRN 11/12/22 11/12/22 History Sulfate Hfa] Cyclobenzaprine [Flexeril] 10 mg PO TID PRN 11/12/22 11/12/22 History Montelukast [Singulair] 10 mg PO DAILY 11/12/22 11/12/22 History Mupirocin Calcium 2% Cream 1 applic TOPICAL BID 11/12/22 11/12/22 History [Bactroban 2% Cream] Pantoprazole Sodium [Protonix] 40 mg PO DAILY 11/12/22 11/12/22 History Sertraline [Zoloft] 100 mg PO DAILY 11/12/22 11/12/22 History Sulfamethox-Tmp 800-160Mg [Bactrim 1 tab PO Q12HR 11/12/22 11/12/22 History DS 800-160 mg] Allergies Allergy/AdvReac Type Severity Reaction Status Date / Time codeine AdvReac Dizzy, Verified 11/12/22 10:30 Nausea & Vomiting Surgical - Exam Vital Signs Temp Pulse Resp BP Pulse Ox 98.4 F 110 H 20 132/82 99 11/12/22 08:08 11/12/22 08:08 11/12/22 08:08 11/12/22 08:08 11/12/22 08:08 Results - Labs 11/12/22 08:35 11/13/22 06:16 Microbiology - Last 24 Hours (Table) 11/12/22 12:31 Gram Stain - Preliminary Abdomen Wound Culture - Preliminary Presumptive Staph aureus Diabetes panel 11/13/22 Range/Units 06:16 Creatinine 0.68 (0.52-1.04) mg/dL Pituitary panel 11/13/22 Range/Units 06:16 Creatinine 0.68 (0.52-1.04) mg/dL Adrenal panel 11/13/22 Range/Units 06:16 Creatinine 0.68 (0.52-1.04) mg/dL
[2022-11-13] MEDS ORDERED: CALCIUM CARBONATE 500 MG CHEWABLE PO PRN (15:49)
[2022-11-13] MEDS: ONDANSETRON 4 MG/2 ML VIAL IVP PRN ×2 (16:00→22:31)
--- NOTE | 2022-11-13 16:11 | P.PN ---
Subjective Progress Note Date: 11/13/22 47-year-old female was admitted for right-sided abdominal wall abscess patient has 2 abscesses with significant induration CT of the abdomen did show fluid collection. General surgery was consulted. Wound cultures were obtained. Patient the was on Bactrim for these cellulitis and abscess in spite of Bactrim patient continued to get worse. Patient doesn't have any fever doesn't have any leukocytosis. Patient is presently on vancomycin denied any history of MRSA in the past. 11/13/2022 Patient is evaluated today resting in bed. No acute events overnight. Patient is complaining of nausea and headache today feels is from the vancomycin. Patient is receiving zofran. Tylenol on board for the headache. General surgery has evaluated the patient and not requiring I&D at this time. The right sided ab dominal abscess is draining and culture currently showing staphylococcus aureus at this time. Patient will be monitored closely waiting for finalized cultures. Review of Systems Constitutional: Denied any fatigue denied any fever. Reports headache. Cardio vascular: denied any chest pain, palpitations Gastrointestinal: denied any vomiting, diarrhea. Reports nausea. Pulmonary: Denied any shortness of breath cough Neurologic denied any new focal deficits All inpatient medications were reviewed and appropriate changes in these medications as dictated in the interval history and assessment and plan. PHYSICAL EXAMINATION: GENERAL: The patient is alert and oriented x3, not in any acute distress. Well developed, well nourished. HEENT: Pupils are round and equally reacting to light. EOMI. No scleral icterus. No conjunctival pallor. Normocephalic, atraumatic. No pharyngeal erythema. No th yromegaly. CARDIOVASCULAR: S1 and S2 present. No murmurs, rubs, or gallops. PULMONARY: Chest is clear to auscultation, no wheezing or crackles. ABDOMEN: Soft, nontender, nondistended, normoactive bowel sounds. No palpable organomegaly. MUSCULOSKELETAL: No joint swelling or deformity. EXTREMITIES: No cyanosis, clubbing, or pedal edema. NEUROLOGICAL: Gross neurological examination did not reveal any focal deficits. SKIN: Patient has 2 abscesses on the right side of the abdomen with significant induration and purulent drainage and redness around the abscess. Assessment and plan -Abdominal wall abscess: Patient will be continued on vancomycin no need for incision and drainage at this time, abscess is draining on own. Cultures are showing presumptive staphylococcus aureus pending finalized cultures. -Nausea secondary to IV antibiotics receiving IV zofran -Gastroesophageal esophageal reflux disease -Asthma history without any acute exacerbation -Depression patient is on sertraline which will be continued DVT prophylaxis: Ambulation GI prophylaxis: protonix Full Code The impression and plan of care has been dictated by Renetta Gibbs, Nurse Practitioner as directed. Dr. Jules MD I have performed a history and physical examination and medical decision making of this patient, discussed the same with the dictator, and agree with the dictators assessment and plan as written, documented as a scribe. Based on total visit time, I have performed more than 50% of this visit. Objective - Vital Signs Vital signs: Vital Signs Temp 97.6 F 11/13/22 06:50 Pulse 68 11/13/22 06:50 Resp 18 11/13/22 06:50 BP 112/74 11/13/22 06:50 Pulse Ox 95 11/13/22 06:50 FiO2 Intake & Output 11/12/22 11/13/22 11/13/22 18:59 06:59 18:59 Intake Total 118 375 180 Balance 118 375 180 Weight 104.326 kg Intake: Oral 118 375 180 Other: # Voids 3 2 - Labs CBC & Chem 7: 11/12/22 08:35 11/13/22 06:16 Labs: Microbiology - Last 24 Hours (Table) 11/12/22 12:31 Gram Stain - Preliminary Abdomen Wound Culture - Preliminary Presumptive Staph aureus Assessment and Plan Time with Patient: Less than 30
--- NOTE | 2022-11-13 18:50 | P.PN ---
Subjective Progress Note Date: 11/13/22 Principal diagnosis: abd wall abscess/cellulitis Patient is a 47-year old female presenting to the hospital with right abdominal wall pain swelling redness has been diagnosed with abdominal wall abscess with spontaneous drainage from the upper abscess which was cultured on 11/12/2022 On today's evaluation that is 11/13/2022 patient denies having any fever or any chills still complaining of pain into the abdominal area slightly improved with the pain medication no chest pain shortness of breath or cough and no diarrhea Objective - Vital Signs Vital signs: Vital Signs Temp 97.6 F 11/13/22 06:50 Pulse 68 11/13/22 06:50 Resp 18 11/13/22 06:50 BP 112/74 11/13/22 06:50 Pulse Ox 95 11/13/22 06:50 FiO2 Intake & Output 11/12/22 11/13/22 11/13/22 18:59 06:59 18:59 Intake Total 118 375 180 Balance 118 375 180 Weight 104.326 kg Intake: Oral 118 375 180 Other: # Voids 3 2 - Exam GENERAL DESCRIPTION middle-aged female male lying in bed in no distress RESPIRATORY SYSTEM: Unlabored breathing , decreased breath sounds at bases HEART: S1 S2 regular rate and rhythm ,no loud murmurs ABDOMEN: Soft , abdominal jc wounds are currently dressed EXTREMITIES: No edema feet - Labs CBC & Chem 7: 11/12/22 08:35 11/13/22 06:16 Labs: Microbiology - Last 24 Hours (Table) 11/12/22 12:31 Gram Stain - Preliminary Abdomen Wound Culture - Preliminary Presumptive Staph aureus Assessment and Plan (1) Abdominal wall abscess Current Visit: Yes Status: Acute Code(s): L02.211 - CUTANEOUS ABSCESS OF ABDOMINAL WALL SNOMED Code(s): 29312325 (2) Failure of outpatient treatment Current Visit: Yes Status: Acute Code(s): Z78.9 - OTHER SPECIFIED HEALTH STATUS SNOMED Code(s): 679207515 Plan: 1patient to the hospital abdominal wall abscess x2 the upper area seems to be larger and draining purulent material which has been cultured likely from gram- positive skin claire and high clinical suspicious for community associated MRSA 2-local culture has been repeated currently growing staph aureus 3-patient to continue with vancomycin pharmacy to dose with a target trough of 15 while watching kidney function and cultures closely Time with Patient: Less than 30
[2022-11-13] MEDS ORDERED: MELATONIN 5 MG TABLET PO PRN (21:14)
[2022-11-13] MEDS: DOCUSATE 100 MG CAP PO SCH (21:24)
[2022-11-14] MEDS: IBUPROFEN 800 MG TAB PO PRN (06:47)
[2022-11-14] MEDS: MONTELUKAST 10 MG TAB PO SCH (09:53)
[2022-11-14] MEDS: PANTOPRAZOLE 40 MG TABLET PO SCH (09:53)
[2022-11-14] MEDS: SERTRALINE 100 MG TAB PO SCH (09:53)
[2022-11-14] MEDS: DOCUSATE 100 MG CAP PO SCH ×2 (09:53→20:22)
[2022-11-14] MEDS: VANCOMYCIN 1,750 MG in SODIUM CHLORIDE 0.9% 500 ML 500 ML IVPB SCH ×2 (11:58→23:59)
[2022-11-14] MEDS: ONDANSETRON 4 MG/2 ML VIAL IVP PRN (11:58)
[2022-11-14] MEDS: MUPIROCIN 2% OINT 22 GM TUBE TOPICAL SCH ×2 (11:59→20:22)
--- NOTE | 2022-11-14 14:13 | P.PN ---
Subjective Progress Note Date: 11/14/22 CHIEF COMPLAINT: Abdominal abscesses HISTORY OF PRESENT ILLNESS: Patient's abdominal abscesses continue to drain. There is decreased erythema and area of induration. Patient reports her pain is decreased. Culture did come back as MRSA. She is afebrile. WBCs 8.1. PHYSICAL EXAM: VITAL SIGNS: Reviewed. GENERAL: Well-developed in no acute distress. HEENT: No sclera icterus. Extraocular movements grossly intact. Moist buccal mucosa. Head is atraumatic, normocephalic. ABDOMEN: Soft. Nondistended. Abscesses continue to drain. Decreased tenderness to palpation. Area of induration and erythema decreasing in size. NEUROLOGIC: Alert and oriented. Cranial nerves II through XII grossly intact. ASSESSMENT: 1. Right-sided abdominal abscesses x 2 with MRSA PLAN: -No surgical intervention planned -Discharge and about X per infectious disease -Continue warm compresses -Continue to shower Physician Residential Instructor note has been reviewed by physician. Signing provider agrees with the documented findings, assessment, and plan of care. Objective - Vital Signs Vital signs: Vital Signs Temp 98.4 F 11/14/22 06:59 Pulse 79 11/14/22 06:59 Resp 16 11/14/22 06:59 BP 108/68 11/14/22 06:59 Pulse Ox 97 11/14/22 06:59 FiO2 Intake & Output 11/13/22 11/14/22 11/14/22 18:59 06:59 18:59 Intake Total 644 Balance 644 Intake: Oral 644 Other: Voiding Method Toilet # Voids 4 2 - Labs CBC & Chem 7: 11/12/22 08:35 11/13/22 06:16 Labs: Microbiology - Last 24 Hours (Table) 11/12/22 08:35 Blood Culture - Preliminary Blood No Growth after 48 hours 11/12/22 08:35 Blood Culture - Preliminary Blood No Growth after 48 hours 11/12/22 12:31 Gram Stain - Final Abdomen Wound Culture - Final Methicillin resist S. aureus
--- NOTE | 2022-11-14 15:52 | P.PN ---
Subjective Progress Note Date: 11/14/22 47-year-old female was admitted for right-sided abdominal wall abscess patient has 2 abscesses with significant induration CT of the abdomen did show fluid collection. General surgery was consulted. Wound cultures were obtained. Patient the was on Bactrim for these cellulitis and abscess in spite of Bactrim patient continued to get worse. Patient doesn't have any fever doesn't have any leukocytosis. Patient is presently on vancomycin denied any history of MRSA in the past. 11/13/2022 Patient is evaluated today resting in bed. No acute events overnight. Patient is complaining of nausea and headache today feels is from the vancomycin. Patient is receiving zofran. Tylenol on board for the headache. General surgery has evaluated the patient and not requiring I&D at this time. The right sided ab dominal abscess is draining and culture currently showing staphylococcus aureus at this time. Patient will be monitored closely waiting for finalized cultures. 11/14/2022 Patient evaluated today resting in bed. Wound culture has finalized showing MRSA. Patient continues on IV vancomycin. ID following for final D/C recommendations. General surgery is not planning on surgical intervention. The abscess on the upper right abdomen is draining with minimal induration. The abscess on the lower right abdomen has some purulent discharge with redness and swelling. Review of Systems Constitutional: Denied any fatigue denied any fever. Reports headache. Cardio vascular: denied any chest pain, palpitations Gastrointestinal: denied any vomiting, diarrhea. Reports nausea. Pulmonary: Denied any shortness of breath cough Neurologic denied any new focal deficits All inpatient medications were reviewed and appropriate changes in these medications as dictated in the interval history and assessment and plan. PHYSICAL EXAMINATION: GENERAL: The patient is alert and oriented x3, not in any acute distress. Well developed, well nourished. HEENT: Pupils are round and equally reacting to light. EOMI. No scleral icterus. No conjunctival pallor. Normocephalic, atraumatic. No pharyngeal erythema. No thyromegaly. CARDIOVASCULAR: S1 and S2 present. No murmurs, rubs, or gallops. PULMONARY: Chest is clear to auscultation, no wheezing or crackles. ABDOMEN: Soft, nontender, nondistended, normoactive bowel sounds. No palpable organomegaly. MUSCULOSKELETAL: No joint swelling or deformity. EXTREMITIES: No cyanosis, clubbing, or pedal edema. NEUROLOGICAL: Gross neurological examination did not reveal any focal deficits. SKIN: Patient has 2 abscesses on the right side of the abdomen with significant induration and purulent drainage and redness around the abscess mostly to the lower abscess. Assessment and plan -Abdominal wall abscess: Patient will be continued on vancomycin, cultures nisha wing MRSA. no surgical intervention planned. -Nausea secondary to IV antibiotics receiving IV zofran -Gastroesophageal esophageal reflux disease -Asthma history without any acute exacerbation -Depression patient is on sertraline which will be continued DVT prophylaxis: Ambulation GI prophylaxis: protonix Full Code Discharge pending final antibiotic recommendations and wound care. The impression and plan of care has been dictated by Renetta Gibbs Nurse Practitioner as directed. Dr. Jules MD I have performed a history and physical examination and medical decision making of this patient, discussed the same with the dictator, and agree with the dictators assessment and plan as written, documented as a scribe. Based on total visit time, I have performed more than 50% of this visit. Objective - Vital Signs Vital signs: Vital Signs Temp 98.3 F 11/14/22 15:00 Pulse 78 11/14/22 15:00 Resp 18 11/14/22 15:00 BP 116/76 11/14/22 15:00 Pulse Ox 96 11/14/22 15:00 FiO2 Intake & Output 11/13/22 11/14/22 11/14/22 18:59 06:59 18:59 Intake Total 644 Balance 644 Intake: Oral 644 Other: Voiding Method Toilet # Voids 4 2 2 - Labs CBC & Chem 7: 11/12/22 08:35 11/13/22 06:16 Labs: Microbiology - Last 24 Hours (Table) 11/12/22 08:35 Blood Culture - Preliminary Blood No Growth after 48 hours 11/12/22 08:35 Blood Culture - Preliminary Blood No Growth after 48 hours 11/12/22 12:31 Gram Stain - Final Abdomen Wound Culture - Final Methicillin resist S. aureus Assessment and Plan Time with Patient: Less than 30
--- NOTE | 2022-11-14 16:49 | P.PN ---
Subjective Progress Note Date: 11/14/22 Principal diagnosis: abd wall abscess/cellulitis Patient is a 47-year old female presenting to the hospital with right abdominal wall pain swelling redness has been diagnosed with abdominal wall abscess with spontaneous drainage from the upper abscess which was cultured on 11/12/2022 On today's evaluation that is 11/14/2022 patient remains to be afebrile, patient denies having any chest pain or shortness of breath or cough has been complaining of some headache and can to complain of abdominal pain mostly to the lower abdominal abscess area Objective - Vital Signs Vital signs: Vital Signs Temp 98.4 F 11/14/22 06:59 Pulse 79 11/14/22 06:59 Resp 16 11/14/22 06:59 BP 108/68 11/14/22 06:59 Pulse Ox 97 11/14/22 06:59 FiO2 Intake & Output 11/13/22 11/14/22 11/14/22 18:59 06:59 18:59 Intake Total 644 Balance 644 Intake: Oral 644 Other: Voiding Method Toilet # Voids 4 2 - Exam GENERAL DESCRIPTION middle-aged female male lying in bed in no distress RESPIRATORY SYSTEM: Unlabored breathing , decreased breath sounds at bases HEART: S1 S2 regular rate and rhythm ABDOMEN: Soft , abdominal abscess with minimal drainage still has significant surrounding induration EXTREMITIES: No edema feet - Labs CBC & Chem 7: 11/12/22 08:35 11/13/22 06:16 Labs: Microbiology - Last 24 Hours (Table) 11/12/22 08:35 Blood Culture - Preliminary Blood No Growth after 48 hours 11/12/22 08:35 Blood Culture - Preliminary Blood No Growth after 48 hours 11/12/22 12:31 Gram Stain - Final Abdomen Wound Culture - Final Methicillin resist S. aureus Assessment and Plan (1) Abdominal wall abscess Current Visit: Yes Status: Acute Code(s): L02.211 - CUTANEOUS ABSCESS OF ABDOMINAL WALL SNOMED Code(s): 64868927 (2) Failure of outpatient treatment Current Visit: Yes Status: Acute Code(s): Z78.9 - OTHER SPECIFIED HEALTH STATUS SNOMED Code(s): 256547489 Plan: 1patient to the hospital abdominal wall abscess x2 the upper area seems to be larger and draining purulent material which has been cultured likely from gram-positive skin claire and high clinical suspicious for community associated MRSA 2-local culture currently growing MRSA 3-patient to continue with vancomycin , keeping in mind persistent extensive infection she'll benefit from short course of IV daptomycin on discharge for which midline will be placed Time with Patient: Less than 30
[2022-11-14] MEDS ORDERED: METOCLOPRAMIDE 5 MG/ML 2 ML VIAL IVP STA (17:19)
[2022-11-14] MEDS ORDERED: HYDROmorphone 1 MG/ML 1 ML SYRINGE IVP STA (17:25)
[2022-11-14] MEDS: KETOROLAC 15 MG/ML 1 ML VIAL IVP PRN (17:48)
--- NOTE | 2022-11-14 20:31 | P.OP ---
Date of Procedure: 11/14/22 Preoperative Diagnosis: Abdominal wall abscess Postoperative Diagnosis: Abdominal wall abscess Procedure(s) Performed: Incision and drainage of abdominal wall abscess Anesthesia: [place], local Surgeon: Deonte Toscano Estimated Blood Loss (ml): 5 Pathology: none sent Condition: stable Disposition: PACU Description of Procedure: The patient's placed on her bed in supine position. Her abdomen was prepped in usual fashion. Patient had 2 abscesses on the right abdominal wall. The lower right abdominal wall abscess with assessment with 1% local Xylocaine. Using 11 blade a cruciate incision was made over the skin. A small amount of purulent fluid was removed. Sterile dressings applied. She tolerated the procedure well.
[2022-11-14] MEDS ORDERED: VANCOMYCIN TROUGH DUE 1 EACH MISC MISCELLANE ONE (22:00)
[2022-11-15] MEDS: ONDANSETRON 4 MG/2 ML VIAL IVP PRN (00:19)
[2022-11-15] MEDS: KETOROLAC 15 MG/ML 1 ML VIAL IVP PRN ×2 (00:19→07:40)
[2022-11-15 06:42] LABS: African American GFR (CKD) >90 (>60 ml/min/1.73 sqM); Non-African American GFR(CKD) >90 (>60 ml/min/1.73 sqM)
[2022-11-15] MEDS: SERTRALINE 100 MG TAB PO SCH (09:30)
[2022-11-15] MEDS: DOCUSATE 100 MG CAP PO SCH ×2 (09:31→20:57)
[2022-11-15] MEDS: MONTELUKAST 10 MG TAB PO SCH (09:32)
[2022-11-15] MEDS: PANTOPRAZOLE 40 MG TABLET PO SCH (09:32)
[2022-11-15] MEDS: diphenhydrAMINE 25 MG CAP PO PRN ×2 (10:30→21:01)
[2022-11-15] MEDS: MUPIROCIN 2% OINT 22 GM TUBE TOPICAL SCH ×2 (10:31→20:57)
[2022-11-15] MEDS ORDERED: VANCOMYCIN 1,500 MG in SODIUM CHLORIDE 0.9% 500 ML 500 ML IVPB SCH (12:00)
[2022-11-15] MEDS ORDERED: methylPREDNISolone SOD SUCCI 40 MG/ML 1 ML VIAL IV STA (12:21)
[2022-11-15] MEDS: HYDROCORTISONE 1% CREAM 30 GM TUBE TOPICAL PRN (12:37)
[2022-11-15] MEDS: DAPTOmycin 500 MG in SODIUM CHLORIDE 0.9% 50 ML IVPB SCH (12:37)
--- NOTE | 2022-11-15 13:48 | P.PN ---
Subjective Progress Note Date: 11/15/22 CHIEF COMPLAINT: Abdominal abscesses HISTORY OF PRESENT ILLNESS: Patient is status post bedside incisional drainage of the lower right abdominal abscess by Dr. horan yesterday. Patient has had some improvement both abscesses. The top abscess is less indurated and less erythema. Right lower abscesses also showing less erythema and a softer. Both continue to drain. Patient is very itchy today throughout her neck and abdomen. She started to develop a rash on the abdomen and up into the neck. Medicines service has ordered Benadryl and a dose of steroids. PHYSICAL EXAM: VITAL SIGNS: Reviewed. GENERAL: Well-developed in no acute distress. HEENT: No sclera icterus. Extraocular movements grossly intact. Moist buccal mucosa. Head is atraumatic, normocephalic. ABDOMEN: Soft. Nondistended. To abscesses. Both continue to drain. Showing improvement. Decreased erythema. The top abscess decrease induration NEUROLOGIC: Alert and oriented. Cranial nerves II through XII grossly intact. Skin: Patient is starting to have rash around the abscesses and on her neck ASSESSMENT: 1. Right-sided abdominal abscesses x 2 with MRSA. Status post bedside I&D of the right lower abscesses PLAN: -Patient can be discharged and surgical standpoint -Discharge antibiotic recommendations per infectious disease -Continue warm compresses -Continue to shower daily Physician Trial Justice note has been reviewed by physician. Signing provider agrees with the documented findings, assessment, and plan of care. Objective - Vital Signs Vital signs: Vital Signs Temp 98.2 F 11/15/22 07:00 Pulse 74 11/15/22 07:00 Resp 15 11/15/22 07:00 BP 119/59 11/15/22 07:00 Pulse Ox 94 L 11/15/22 07:00 FiO2 Intake & Output 11/14/22 11/15/22 11/15/22 18:59 06:59 18:59 Intake Total 118 Balance 118 Intake: Oral 118 Other: Voiding Method Toilet Toilet # Voids 2 1 - Labs CBC & Chem 7: 11/12/22 08:35 11/15/22 05:42 Labs: Microbiology - Last 24 Hours (Table) 11/12/22 08:35 Blood Culture - Preliminary Blood No Growth after 72 hours 11/12/22 08:35 Blood Culture - Preliminary Blood No Growth after 72 hours
--- NOTE | 2022-11-15 14:56 | P.PN ---
Subjective Progress Note Date: 11/15/22 Principal diagnosis: abd wall abscess/cellulitis Patient is a 47-year old female presenting to the hospital with right abdominal wall pain swelling redness has been diagnosed with abdominal wall abscess with spontaneous drainage from the upper abscess which was cultured on 11/12/2022, patient did drainage of the right lower abdominal wall abscess by surgery On today's evaluation that is 11/15/2022 patient continues to be afebrile, patient denies having any chest pain or shortness of breath or cough, patient has developed a rash and itching will infusion of vancomycin which was stopped, overall swelling redness to the abdominal wall area of abscess and decreased in intensity and less drainage Objective - Vital Signs Vital signs: Vital Signs Temp 98.2 F 11/15/22 07:00 Pulse 74 11/15/22 07:00 Resp 15 11/15/22 07:00 BP 119/59 11/15/22 07:00 Pulse Ox 94 L 11/15/22 07:00 FiO2 Intake & Output 11/14/22 11/15/22 11/15/22 18:59 06:59 18:59 Intake Total 340 Balance 340 Intake: Oral 340 Other: Voiding Method Toilet Toilet # Voids 2 1 - Exam GENERAL DESCRIPTION middle-aged female male lying in bed in no distress RESPIRATORY SYSTEM: Unlabored breathing , decreased breath sounds at bases HEART: S1 S2 regular rate and rhythm ABDOMEN: Soft , abdominal abscess with minimal drainage still has significant surrounding induration EXTREMITIES: No edema feet - Labs CBC & Chem 7: 11/12/22 08:35 11/15/22 05:42 Labs: Microbiology - Last 24 Hours (Table) 11/12/22 08:35 Blood Culture - Preliminary Blood No Growth after 72 hours 11/12/22 08:35 Blood Culture - Preliminary Blood No Growth after 72 hours Assessment and Plan (1) Abdominal wall abscess Current Visit: Yes Status: Acute Code(s): L02.211 - CUTANEOUS ABSCESS OF ABDOMINAL WALL SNOMED Code(s): 13743802 (2) Failure of outpatient treatment Current Visit: Yes Status: Acute Code(s): Z78.9 - OTHER SPECIFIED HEALTH ST ATUS SNOMED Code(s): 895022853 Plan: 1patient to the hospital abdominal wall abscess x2 the upper area seems to be larger and draining purulent material which has been cultured likely from gram- positive skin claire and high clinical suspicious for community associated MRSA 2-local culture currently growing MRSA 3-patient more likely has developed anaphylactoid rash to vancomycin for possible infusion which has been discontinued, antibiotics switched to daptomycin with the plan to continue the outpatient setting for about a week and close outpatient follow-up Time with Patient: Less than 30
--- NOTE | 2022-11-15 15:33 | P.PN ---
Subjective Progress Note Date: 11/15/22 47-year-old female was admitted for right-sided abdominal wall abscess patient has 2 abscesses with significant induration CT of the abdomen did show fluid collection. General surgery was consulted. Wound cultures were obtained. Patient the was on Bactrim for these cellulitis and abscess in spite of Bactrim patient continued to get worse. Patient doesn't have any fever doesn't have any leukocytosis. Patient is presently on vancomycin denied any history of MRSA in the past. 11/13/2022 Patient is evaluated today resting in bed. No acute events overnight. Patient is complaining of nausea and headache today feels is from the vancomycin. Patient is receiving zofran. Tylenol on board for the headache. General surgery has evaluated the patient and not requiring I&D at this time. The right sided ab dominal abscess is draining and culture currently showing staphylococcus aureus at this time. Patient will be monitored closely waiting for finalized cultures. 11/14/2022 Patient evaluated today resting in bed. Wound culture has finalized showing MRSA. Patient continues on IV vancomycin. ID following for final D/C recommendations. General surgery is not planning on surgical intervention. The abscess on the upper right abdomen is draining with minimal induration. The abscess on the lower right abdomen has some purulent discharge with redness and swelling. 11/15/2022 Patient evaluated today on medical floor. Status Post I and D of the right lower abdomen abscess. Patient continues with area of induration around the right upper abdomen abscess which is draining. Patient has developed significant redness and itching on the back, abdomen, neck and hands. Also did report tingling of the mouth. Patient is given IV steroids for this with improvement in symptoms. Patient will be monitored overnight and given another dose of IV steroids. IV vancomycin has been stopped. Antibiotics changed to daptomycin to infuse daily x 2 weeks. Midline placed. Review of Systems Constitutional: Denied any fatigue denied any fever. Reports headache. Cardio vascular: denied any chest pain, palpitations Gastrointestinal: denied any vomiting, diarrhea. Reports nausea. Pulmonary: Denied any shortness of breath cough Neurologic denied any new focal deficits All inpatient medications were reviewed and appropriate changes in these medications as dictated in the interval history and assessment and plan. PHYSICAL EXAMINATION: GENERAL: The patient is alert and oriented x3, not in any acute distress. Well developed, well nourished. HEENT: Pupils are round and equally reacting to light. EOMI. No scleral icterus. No conjunctival pallor. Normocephalic, atraumatic. No pharyngeal erythema. No thyromegaly. CARDIOVASCULAR: S1 and S2 present. No murmurs, rubs, or gallops. PULMONARY: Chest is clear to auscultation, no wheezing or crackles. ABDOMEN: Soft, nontender, nondistended, normoactive bowel sounds. No palpable organomegaly. MUSCULOSKELETAL: No joint swelling or deformity. EXTREMITIES: No cyanosis, clubbing, or pedal edema. NEUROLOGICAL: Gross neurological examination did not reveal any focal deficits. SKIN: Patient has 2 abscesses on the right side of the abdomen with significant induration, drainage is less. Assessment and plan -Abdominal wall abscess status post I&D of the right lower abscess, right upper abscess continues to drain -Nausea secondary to IV antibiotics receiving IV zofran -Possible anaphylactic like rash to vancomycin, antibiotics have been changed to IV daptomycin and patient will be monitored overnight and receive IV steroids. -Gastroesophageal esophageal reflux disease -Asthma history without any acute exacerbation -Depression DVT prophylaxis: Ambulation GI prophylaxis: protonix Full Code The impression and plan of care has been dictated by Renetta Gibbs Nurse Practitioner as directed. Dr. Jules MD I have performed a history and physical examination and medical decision making of this patient, discussed the same with the dictator, and agree with the dictators assessment and plan as written, documented as a scribe. Based on total visit time, I have performed more than 50% of this visit. Objective - Vital Signs Vital signs: Vital Signs Temp 98.2 F 11/15/22 07:00 Pulse 74 11/15/22 07:00 Resp 15 11/15/22 07:00 BP 119/59 11/15/22 07:00 Pulse Ox 94 L 11/15/22 07:00 FiO2 Intake & Output 11/14/22 11/15/22 11/15/22 18:59 06:59 18:59 Intake Total 340 Balance 340 Intake: Oral 340 Other: Voiding Method Toilet Toilet # Voids 2 1 3 - Labs CBC & Chem 7: 11/12/22 08:35 11/15/22 05:42 Labs: Microbiology - Last 24 Hours (Table) 11/12/22 08:35 Blood Culture - Preliminary Blood No Growth after 72 hours 11/12/22 08:35 Blood Culture - Preliminary Blood No Growth after 72 hours Assessment and Plan Time with Patient: Less than 30
[2022-11-15] MEDS ORDERED: KETOROLAC 15 MG/ML 1 ML VIAL IVP PRN (15:34)
[2022-11-15] MEDS: LACTULOSE 20 GM/30 ML CUP PO SCH (18:31)
[2022-11-15] MEDS: methylPREDNISolone SOD SUCCI 40 MG/ML 1 ML VIAL IV SCH (21:11)
[2022-11-15] MEDS: IBUPROFEN 800 MG TAB PO PRN (21:14)
[2022-11-16] MEDS: IBUPROFEN 800 MG TAB PO PRN (06:03)
[2022-11-16 08:29] VITALS: BP 98/54; PULSE 83; RESP 18; TEMP 97.8
[2022-11-16] MEDS: SERTRALINE 100 MG TAB PO SCH (08:37)
[2022-11-16] MEDS: PANTOPRAZOLE 40 MG TABLET PO SCH (08:37)
[2022-11-16] MEDS: MONTELUKAST 10 MG TAB PO SCH (08:37)
[2022-11-16] MEDS: DOCUSATE 100 MG CAP PO SCH (08:37)
[2022-11-16] MEDS: methylPREDNISolone SOD SUCCI 40 MG/ML 1 ML VIAL IV SCH (08:37)
[2022-11-16] MEDS: LACTULOSE 20 GM/30 ML CUP PO SCH (08:37)
[2022-11-16] MEDS: MUPIROCIN 2% OINT 22 GM TUBE TOPICAL SCH (08:38)
[2022-11-16] MEDS: HYDROCORTISONE 1% CREAM 30 GM TUBE TOPICAL PRN (08:38)
[2022-11-16] MEDS: diphenhydrAMINE 25 MG CAP PO PRN (09:26)
[2022-11-16] MEDS ORDERED: VANCOMYCIN TROUGH DUE 1 EACH MISC MISCELLANE ONE (11:00)
--- NOTE | 2022-11-16 12:47 | P.PN ---
Subjective Progress Note Date: 11/16/22 Principal diagnosis: abd wall abscess/cellulitis Patient is a 47-year old female presenting to the hospital with right abdominal wall pain swelling redness has been diagnosed with abdominal wall abscess with spontaneous drainage from the upper abscess which was cultured on 11/12/2022, patient did drainage of the right lower abdominal wall abscess by surgery On today's evaluation that is 11/16/2022 patient remains to be afebrile, patient denies having any chest pain or shortness of breath or cough, patient rash has decreased in intensity, the patient abdominal wall swelling redness has decreased in intensity and less drainage Objective - Vital Signs Vital signs: Vital Signs Temp 97.8 F 11/16/22 07:00 Pulse 83 11/16/22 07:00 Resp 18 11/16/22 08:43 BP 98/54 11/16/22 07:00 Pulse Ox 96 11/16/22 07:00 FiO2 Intake & Output 11/15/22 11/16/22 11/16/22 18:59 06:59 18:59 Intake Total 562 118 Balance 562 118 Intake: Oral 562 118 Other: Voiding Method Toilet Toilet # Voids 6 2 - Exam GENERAL DESCRIPTION middle-aged female male lying in bed in no distress RESPIRATORY SYSTEM: Unlabored breathing , decreased breath sounds at bases HEART: S1 S2 regular rate and rhythm ABDOMEN: Soft , abdominal abscess with minimal drainage still has significant surrounding induration EXTREMITIES: No edema feet - Labs CBC & Chem 7: 11/12/22 08:35 11/15/22 05:42 Labs: Microbiology - Last 24 Hours (Table) 11/12/22 08:35 Blood Culture - Preliminary Blood No Growth after 72 hours 11/12/22 08:35 Blood Culture - Preliminary Blood No Growth after 72 hours Assessment and Plan (1) Abdominal wall abscess Current Visit: Yes Status: Acute Code(s): L02.211 - CUTANEOUS ABSCESS OF ABDOMINAL WALL SNOMED Code(s): 94869684 (2) Failure of outpatient treatment Current Visit: Yes Status: Acute Code(s): Z78.9 - OTHER SPECIFIED HEALTH STATUS SNOMED Code(s): 429737167 Plan: 1patient to the hospital abdominal wall abscess x2 the upper area seems to be larger and draining purulent material which has been cultured and subsequently grew MRSA lower abdominal abscess was drained by surgical team, patient developing rash to the vancomycin more likely secondary to infusion rather than ALLERGIC reaction 2-patient seemed to be doing well with the daptomycin to continue for another 7- 10 days in outpatient setting and close patient follow-up Patient did have multiple questions and concerns those were answered in Layman terms Time with Patient: Less than 30
[2022-11-16] MEDS: DAPTOmycin 500 MG in SODIUM CHLORIDE 0.9% 50 ML IVPB SCH (12:58)
--- NOTE | 2022-11-16 13:03 | P.PN ---
Subjective Progress Note Date: 11/16/22 CHIEF COMPLAINT: Abdominal abscesses HISTORY OF PRESENT ILLNESS: Patient is status post bedside incisional drainage of the lower right abdominal abscess by Dr. Toscano. Patient is feeling better. Her pain is improving. The abscesses are improving. She has been cleared by infectious disease for discharge. afebrile. PHYSICAL EXAM: VITAL SIGNS: Reviewed. GENERAL: Well-developed in no acute distress. HEENT: No sclera icterus. Extraocular movements grossly intact. Moist buccal mucosa. Head is atraumatic, normocephalic. ABDOMEN: Soft. Nondistended. NEUROLOGIC: Alert and oriented. Cranial nerves II through XII grossly intact. Skin: Patient is starting to have rash around the abscesses and on her neck ASSESSMENT: 1. Right-sided abdominal abscesses x 2 with MRSA. Status post bedside I&D of the right lower abscesses PLAN: -Patient can be discharged and surgical standpoint -Discharge antibiotic recommendations per infectious disease -Continue warm compresses -Continue to shower daily Physician Rep[employer] note has been reviewed by physician. Signing provider agrees with the documented findings, assessment, and plan of care. Objective - Vital Signs Vital signs: Vital Signs Temp 97.8 F 11/16/22 07:00 Pulse 83 11/16/22 07:00 Resp 18 11/16/22 08:43 BP 98/54 11/16/22 07:00 Pulse Ox 96 11/16/22 07:00 FiO2 Intake & Output 11/15/22 11/16/22 11/16/22 18:59 06:59 18:59 Intake Total 562 118 Balance 562 118 Intake: Oral 562 118 Other: Voiding Method Toilet Toilet # Voids 6 2 - Labs CBC & Chem 7: 11/12/22 08:35 11/15/22 05:42 Labs: Microbiology - Last 24 Hours (Table) 11/12/22 08:35 Blood Culture - Preliminary Blood No Growth after 96 hours 11/12/22 08:35 Blood Culture - Preliminary Blood No Growth after 96 hours
--- NOTE | 2022-11-19 06:48 | P.DS ---
Providers Date of admission: 11/12/22 11:06 Expected date of discharge: 11/16/22 Attending physician: Yvette Sprague Consults: 11/12/22 10:50 Consult Physician Urgent Consulting Provider: Ana María Menendez Consult Reason/Comments: Abdominal wall abscess, failure of outpatient treatment Do you want consulting provider notified?: Yes 11/12/22 16:10 Consult Physician Routine Consulting Provider: Deonte Toscano Consult Reason/Comments: abdominal wall abscess Do you want consulting provider notified?: Yes Primary care physician: Ru Latif [facility] Course: Final diagnosis -Abdominal wall abscess status post I&D of the right lower abscess, growing MRSA -Nausea secondary to IV antibiotics, improved -Possible anaphylactoid like rash to vancomycin, antibiotics have been changed to IV daptomycin and patient will be monitored overnight and receive IV steroids. During -Gastroesophageal reflux disease -Asthma history without any acute exacerbation -Depression -Obesity with a BMI of 34 -DVT prophylaxis: Ambulation -GI prophylaxis: protonix -Full Code Discharge disposition Patient is being discharged in a stable condition with guarded prognosis to home with home care. Patient will follow-up with Dr. Latif in the outpatient setting upon discharge. Patient is to continue with IV daptomycin and follow-up closely with infectious disease outpatient as scheduled. Patient will continue a Medrol Dosepak on discharge. Total time taken is greater than 35 minutes. Hospital course This is a 47-year-old female who was recently admitted with failure of outpa tient treatment secondary to abdominal wall abscess that was started on oral antibiotics although continue to worsen patient was hospitalized requiring IV antibiotic therapy. Patient continued to have drainage from the 2 abscesses although continued with increased redness and induration and general surgery following underwent I&D at bedside with PT culture showing MRSA with infectious disease following. Patient was continued on vancomycin and did receive a midline although having some generalized diffuse anaphylactoid type rash and vancomycin was stopped and started on Benadryl along with a couple doses of IV steroids showing some improvement and was switched to daptomycin. Patient arranged for outpatient antibiotics and will continue daptomycin for the next 2 weeks and close outpatient follow-up with infectious disease. Patient to continue with local wound care and will be having home care arranged. Patient has been cleared by consultations for discharge. Please refer to other c onsultation notes for further HPI. Patient instructed to follow-up with her primary care provider as patient has surgery scheduled outpatient tentatively. Will need clearance from infectious disease at this current abdominal abscess prior to surgery. Initial starting of FMLA/short-term disability paperwork started in regards to the hospitalization and patient was instructed to follow- up with primary care provider as well as infectious disease for further documentation on these records as far as clearance to return to work. Patient along with family members at bedside verbalized understanding. Currently no reports of chest pain, shortness of breath, or palpitations. Patient is afebrile. No reports of nausea or vomiting and patient is tolerating diet. Patient will be discharged home today. Physical exam: Gen: This is a 47-year-old female who is awake, alert and oriented 3, well- developed, well-nourished, obese HEENT: Head is atraumatic, normocephalic. Pupils equal, round. Sclerae is anicteric. NECK: Supple. No JVD. No lymphadenopathy. No thyromegaly. LUNGS: Clear to auscultation. No wheezes or rhonchi. No intercostal retractions. HEART: Regular rate and rhythm. No murmur. ABDOMEN: Soft. Bowel sounds are present. No masses. 2 abscesses on the right upper quadrant and lower quadrant with some redness and induration although some improvement and continued drainage noted with dressings that are currently dry and intact EXTREMITIES: No pedal edema. No calf tenderness. NEUROLOGICAL: Patient is awake, alert and oriented x3. Cranial nerves 2 through 12 are grossly intact. Please refer to medication reconciliation sheet for a list of medications. The impression and plan of care has been dictated by Tali Rouse, Nurse Practitioner as directed. Dr. Jules MD I have performed a history and examination and MDM of this patient, discussed the same with the dictator, and agree with the dictator's assessment and plan as written ,documented as a scribe. Based on total visit time, I have performed more than 50% of the visit. Patient Condition at Discharge: Fair Plan - Discharge Summary Discharge Rx Participant: Yes New Discharge Prescriptions: New diphenhydrAMINE [Benadryl] 25 mg PO BID PRN #20 cap PRN Reason: Itching Acetaminophen Tab [Tylenol] 650 mg PO Q6HR PRN tab PRN Reason: Mild Pain Or Fever > 100.5 Docusate [Colace] 100 mg PO BID PRN cap PRN Reason: Constipation Hydrocortisone Cream [Hydrocortisone 1% Cream] 1 applic TOPICAL BID PRN #1 each PRN Reason: Skin Irritation Calcium Carbonate [Tums] 1,000 mg PO QID PRN tab PRN Reason: Heartburn methylPREDNISolone Dose Pack [Medrol Dose Pack] 4 mg PO DIRECTED #21 tab Continue Pantoprazole Sodium [Protonix] 40 mg PO QAM Ibuprofen [Motrin] 800 mg PO Q8H PRN PRN Reason: Pain Sertraline [Zoloft] 100 mg PO DAILY Montelukast [Singulair] 10 mg PO DAILY Albuterol Sulfate [Albuterol Sulfate Hfa] 2 puff PO RT-QID PRN PRN Reason: Shortness Of Breath Mupirocin Calcium 2% Cream [Bactroban 2% Cream] 1 applic TOPICAL BID Cyclobenzaprine [Flexeril] 10 mg PO TID PRN PRN Reason: Muscle Spasm Pantoprazole Sodium [Protonix] 40 mg PO DAILY Discontinued Sulfamethox-Tmp 800-160Mg [Bactrim DS 800-160 mg] 1 tab PO Q12HR Discharge Medication List Ibuprofen [Motrin] 800 mg PO Q8H PRN 09/30/19 [History] Pantoprazole Sodium [Protonix] 40 mg PO QAM 09/30/19 [History] Albuterol Sulfate [Albuterol Sulfate Hfa] 2 puff PO RT-QID PRN 11/12/22 [History] Cyclobenzaprine [Flexeril] 10 mg PO TID PRN 11/12/22 [History] Montelukast [Singulair] 10 mg PO DAILY 11/12/22 [History] Mupirocin Calcium 2% Cream [Bactroban 2% Cream] 1 applic TOPICAL BID 11/12/22 [History] Pantoprazole Sodium [Protonix] 40 mg PO DAILY 11/12/22 [History] Sertraline [Zoloft] 100 mg PO DAILY 11/12/22 [History] Acetaminophen Tab [Tylenol] 650 mg PO Q6HR PRN tab 11/16/22 [Rx] Calcium Carbonate [Tums] 1,000 mg PO QID PRN tab 11/16/22 [Rx] Docusate [Colace] 100 mg PO BID PRN cap 11/16/22 [Rx] Hydrocortisone Cream [Hydrocortisone 1% Cream] 1 applic TOPICAL BID PRN #1 each 11/16/22 [Rx] diphenhydrAMINE [Benadryl] 25 mg PO BID PRN #20 cap 11/16/22 [Rx] methylPREDNISolone Dose Pack [Medrol Dose Pack] 4 mg PO DIRECTED #21 tab 11/16/22 [Rx] Follow up Appointment(s)/Referral(s): [facility], [NON-STAFF] - 1 Week [facility],Infusion [NON-STAFF] - 1 Week Ru Latif DO [Primary Care Provider] - 1-2 days Ana María Menendez MD [STAFF PHYSICIAN] - 1 Week (Patient to call and make follow up appointment ) Patient Instructions/Handouts: MRSA (Methicillin-Resistant Staphylococcus Aureus) (DC), Antibiotic Medication Allergy (DC), Abscess (ED), Abscess (GEN), Abscess Incision and Drainage (DC), Warm Compress or Soak (DC) Activity/Diet/Wound Care/Special Instructions: Activity Limited until follow-up Follow-up primary care provider and discharge Follow-up with infectious disease outpatient in 1-2 weeks Continue taking medications as prescribed Continue with Benadryl as needed for itching Continue hydrocortisone cream as directed Discharge Disposition: HOME WITH HOME HEALTH SERVICES
== END 2022-11-16 16:40 | disposition home health service (06) | DRG 580 ==
LOC: EC 08:02 → 6NMEDSUR 11:06 → OBSVTOIN 11:06
PROVIDERS: ADMIT Hospitalist; ATTEND Hospitalist
PROC: 0W9F0ZZ Drainage of Abdominal Wall, Open Approach (ICD-10-PCS; principal; 2022-11-14)
PROC: 05HF33Z Insertion of Infusion Device into Left Cephalic Vein, Percutaneous Approach (ICD-10-PCS; 2022-11-15 08:25)
DX: L02.211 Cutaneous abscess of abdominal wall (principal); T88.6XXA Anaphylactic reaction due to adverse effect of correct drug or medicament properly administered, initial encounter; L27.1 Localized skin eruption due to drugs and medicaments taken internally; L03.311 Cellulitis of abdominal wall; F32.A Depression, unspecified; K21.9 Gastro-esophageal reflux disease without esophagitis; F41.9 Anxiety disorder, unspecified; J45.909 Unspecified asthma, uncomplicated; T36.8X5A Adverse effect of other systemic antibiotics, initial encounter; X58.XXXA Exposure to other specified factors, initial encounter; E66.9 Obesity, unspecified; B95.62 Methicillin resistant Staphylococcus aureus infection as the cause of diseases classified elsewhere; Z86.14 Personal history of Methicillin resistant Staphylococcus aureus infection; Z90.710 Acquired absence of both cervix and uterus; Z79.899 Other long term (current) drug therapy; Z68.34 Body mass index [BMI] 34.0-34.9, adult; Z88.5 Allergy status to narcotic agent; Y95 Nosocomial condition; Z90.49 Acquired absence of other specified parts of digestive tract
CPT/HCPCS: 36410; 36415; 74177; 76937; 80053; 80202; 82565; 83605; 85025; 87040; 87070; 87077; 87186; 87205; 96374; 99285

== ENCOUNTER → 2023-04-17 | Outpatient (CLI) | payer BC ==
[2023-04-17 13:36] LABS: Appearance,Urine Clear (Clear); Bilirubin,Urine Negative (Negative); Blood,Urine Negative (Negative); Color,Urine Colorless; Glucose,Urine (UA) Negative (Negative); Ketones,Urine Negative (Negative); Leukocyte Esterase,Urine Negative (Negative); Nitrite,Urine Negative (Negative); PH, Urine 6.5 (5.0-8.0); Protein,Urine Negative (Negative); Urobilinogen,Urine <2.0 mg/dL (<2.0)
[2023-04-17 16:40] LABS: BUN/Creat Ratio 24.83 Ratio (12.00-20.00); Blood Urea Nitrogen 14.9 mg/dL (9.0-27.0); Calcium 10.2 mg/dL (8.7-10.3); Carbon Dioxide 25.8 mmol/L (21.6-31.8); Chloride 106 mmol/L (96-109); Glucose 96 mg/dL (70-110); Potassium 4.3 mmol/L (3.5-5.5); Sodium 144 mmol/L (135-145)
[2023-04-17 16:41] LABS: Basophils # (A) 0.03 X 10*3/uL (0.00-0.10); Basophils % (A) 0.4 %; Eosinophils # (A) 0.08 X 10*3/uL (0.04-0.35); Eosinophils % (A) 1.2 %; HCT 41.2 % (37.2-46.3); HGB 13.8 d/dL (12.0-15.0); Lymphocytes # (A) 2.86 X 10*3/uL (0.90-5.00); Lymphocytes % (A) 41.2 %; MCH 32.2 pg (27.0-32.0); MCHC 33.5 d/dL (32.0-37.0); Mean Platelet Volume 11.3 FL (9.5-12.2); Monocytes % (A) 5.8 %; NRBC Per 100 WBC 0 X 10*3/uL (0.00-0.01); Neutrophils # (A) 3.55 X 10*3/uL (1.80-7.70); Platelet Count 290 X 10*3/uL (140-440); RBC 4.29 X 10*6/uL (4.10-5.20); RDW 12.4 % (11.5-14.5); WBC 6.95 X 10*3/uL (4.50-10.00)
== END | disposition home or self-care (01) ==
LOC: LABPAT 12:34
PROVIDERS: ATTEND Urology
DX: Z01.812 Encounter for preprocedural laboratory examination (principal); N39.3 Stress incontinence (female) (male); R31.29 Other microscopic hematuria
CPT/HCPCS: 80048; 81003; 85025; 87086

== ENCOUNTER → 2023-08-23 | Outpatient (CLI) | payer BC ==
--- NOTE | 2023-08-26 19:34 | MM ---
Reason for Exam: Screening (asymptomatic). Last mammogram was performed 12 year(s) and 10 month(s) ago. Patient History: Menarche at age 13. First Full-Term at age 21. Hysterectomy at age 36. Risk Values: Madelin 5 year model risk: 0.8%. NCI Lifetime model risk: 8.3%. Prior Study Comparison: No prior studies available for comparison. Tissue Density: There are scattered fibroglandular densities. Findings: Analyzed By CAD. No significant mass, suspicious microcalcification, or other discrete abnormality is seen. Overall Assessment: Negative, BI-RAD 1 Management: Screening Mammogram of both breasts in 1 year. . Patient should continue monthly self-breast exams. A clinical breast exam by your physician is recommended on an annual basis. This exam should not preclude additional follow-up of suspicious palpable abnormalities. Note on Madelin scores and lifetime risk: 1. A Madelin score greater than 3% is considered moderate risk. If this is the case, consider specialist referral to assess eligibility for a risk reducing agent. 2. If overall lifetime risk for the development of breast cancer is 20% or higher, the patient may qualify for future screening with alternating mammogram and breast MRI. Electronically signed and approved by: Tom Llamas M.D. Radiologist
== END | disposition home or self-care (01) ==
LOC: RADMAMWWP 15:43
PROVIDERS: ATTEND Family Medicine
DX: Z12.31 Encounter for screening mammogram for malignant neoplasm of breast (principal)
CPT/HCPCS: 77063; 77067

== ENCOUNTER → 2025-01-04 | Outpatient (CLI) | payer BC ==
--- NOTE | 2025-01-05 06:38 | MM ---
Reason for Exam: Screening (asymptomatic). Last mammogram was performed 1 year(s) and 5 month(s) ago. Patient History: Menarche at age 13. First Full-Term at age 21. Hysterectomy at age 36. Postmenopausal. Maternal grandmother had breast cancer, age 80. Maternal aunt had breast cancer, age 58. Risk Values: Madelin 5 year model risk: 0.8%. NCI Lifetime model risk: 8.2%. Prior Study Comparison: 10/25/2010 Bilateral Screening Mammogram, [facility]. 08/23/2023 Bilateral MG 3D screening mammo w/cad, [facility]. Tissue Density: There are scattered areas of fibroglandular density. Findings: Analyzed By CAD. Benign appearing bilateral axillary lymph nodes are present. There is no suspicious group of microcalcifications or new suspicious mass in either breast. Overall Assessment: Negative, BI-RAD 1 Management: Screening Mammogram of both breasts in 1 year. . Patient should continue monthly self-breast exams. A clinical breast exam by your physician is recommended on an annual basis. This exam should not preclude additional follow-up of suspicious palpable abnormalities. Note on Madelin scores and lifetime risk: 1. A Madelin score greater than 3% is considered moderate risk. If this is the case, consider specialist referral to assess eligibility for a risk reducing agent. 2. If overall lifetime risk for the development of breast cancer is 20% or higher, the patient may qualify for future screening with alternating mammogram and breast MRI. [facility], , 01/05/2025 6:36 AM. Electronically signed and approved by: Naif Kendall M.D.
== END | disposition home or self-care (01) ==
LOC: RADMAMWWP 15:47
PROVIDERS: ATTEND Family Medicine
DX: Z12.31 Encounter for screening mammogram for malignant neoplasm of breast (principal); R92.323 Mammographic fibroglandular density, bilateral breasts; Z78.0 Asymptomatic menopausal state; Z80.3 Family history of malignant neoplasm of breast
CPT/HCPCS: 77063; 77067